=== PATIENT | male | born 1960 | race Caucasian/White ===

== ENCOUNTER 2020-11-18 10:20 | Observation (INO) ==
[2020-11-18] MEDS ORDERED: Albuterol HFA INHALER 8 gm MDI INH ONE (11:03)
[2020-11-18] MEDS ORDERED: methylPREDNISolone 125 mg 2 ML VIAL IV ONE (11:03)
[2020-11-18 11:36] LABS: ABS Basophils 0.1 10^3/ul (0-0.2); ABS Eosinophils 0.1 10^3/ul (0-0.6); ABS Lymphocytes 1.3 10^3/ul (1.0-4.8); ABS Monocytes 0.7 10^3/ul (0-0.8); ABS Neutrophils 9.4 10^3/ul (1.5-7.7); Eosinophil % 0.7 %; Hematocrit 49 % (42-52); Hemoglobin 16.6 g/dL (14.0-18.0); Lymphocyte % 11.5 %; Mean Corpuscular HGB Conc 34 g/dL (31-36); Mean Corpuscular Hemoglobin 33 pg (27-31); Mean Corpuscular Volume 97 fL (80-94); Mean Platelet Volume 8.4 fL (7.4-10.4); Platelet Count 345 10^3/uL (150-450); Red Blood Count 5.11 10^6 /uL (4.18-5.48); Red Cell Distribution Width 13 % (10-15); White Blood Count 11.6 10^3/uL (3.5-10.8)
[2020-11-18 11:56] LABS: Albumin/Globulin Ratio 1.3 (1-3); Calcium 9.2 mg/dL (8.6-10.3); EGFR African American 92.5 (>60); EGFR Non-African American 76.5 (>60); Globulin 3.2 g/dL (2-4); Magnesium 2.1 mg/dL (1.9-2.7); Potassium 4.4 mmol/L (3.5-5.0); Total Bilirubin 0.5 mg/dL (0.2-1.0); Total Protein 7.2 g/dL (6.4-8.9)
[2020-11-18 11:57] LABS: Influenza A Molecular Negative (Negative); Influenza B Molecular Negative (Negative)
[2020-11-18] MEDS ORDERED: Iohexol 350 (CONTRAST) 500 ML MDV IV ONE (12:19)
[2020-11-18 13:35] LABS: Urine Appearance Clear; Urine Bilirubin Negative (Negative); Urine Blood Negative (Negative); Urine Color Yellow; Urine Glucose Negative (Negative); Urine Ketones Trace (Negative); Urine Nitrite Negative (Negative); Urine Protein Negative (Negative); Urine Urobilinogen Negative (Negative)
[2020-11-18 15:49] LABS: C Reactive Protein 21.57 mg/L (<8.01)
[2020-11-19 06:27] LABS: ABS Basophils 0.1 10^3/ul (0-0.2); ABS Lymphocytes 1.5 10^3/ul (1.0-4.8); ABS Monocytes 0.8 10^3/ul (0-0.8); ABS Neutrophils 12.4 10^3/ul (1.5-7.7); Eosinophil % 0.1 %; Hematocrit 44 % (42-52); Hemoglobin 15.1 g/dL (14.0-18.0); Lymphocyte % 10.1 %; Mean Corpuscular HGB Conc 35 g/dL (31-36); Mean Corpuscular Hemoglobin 33 pg (27-31); Mean Corpuscular Volume 95 fL (80-94); Mean Platelet Volume 8.4 fL (7.4-10.4); Platelet Count 350 10^3/uL (150-450); Red Blood Count 4.61 10^6 /uL (4.18-5.48); Red Cell Distribution Width 13 % (10-15); White Blood Count 14.7 10^3/uL (3.5-10.8)
[2020-11-19 06:59] LABS: Albumin 3.8 g/dL (3.2-5.2); Albumin/Globulin Ratio 1.4 (1-3); Calcium 9.2 mg/dL (8.6-10.3); EGFR African American 89.4 (>60); EGFR Non-African American 73.9 (>60); Globulin 2.8 g/dL (2-4); Potassium 4.4 mmol/L (3.5-5.0); Total Bilirubin 0.4 mg/dL (0.2-1.0); Total Protein 6.6 g/dL (6.4-8.9)
[2020-11-19] MEDS: Multivitamins/Minerals TAB PO SCH (10:11)
[2020-11-20 06:25] LABS: ABS Basophils 0.1 10^3/ul (0-0.2); ABS Eosinophils 0.1 10^3/ul (0-0.6); ABS Lymphocytes 2.3 10^3/ul (1.0-4.8); ABS Monocytes 0.8 10^3/ul (0-0.8); ABS Neutrophils 9.9 10^3/ul (1.5-7.7); Eosinophil % 0.9 %; Hematocrit 43 % (42-52); Hemoglobin 14.7 g/dL (14.0-18.0); Lymphocyte % 17.2 %; Mean Corpuscular HGB Conc 34 g/dL (31-36); Mean Corpuscular Hemoglobin 33 pg (27-31); Mean Corpuscular Volume 96 fL (80-94); Mean Platelet Volume 8.7 fL (7.4-10.4); Platelet Count 308 10^3/uL (150-450); Red Blood Count 4.52 10^6 /uL (4.18-5.48); Red Cell Distribution Width 13 % (10-15); White Blood Count 13.1 10^3/uL (3.5-10.8)
[2020-11-20 06:53] LABS: Calcium 8.7 mg/dL (8.6-10.3); EGFR African American 100.6 (>60); EGFR Non-African American 83.2 (>60); HDL Cholesterol 28.2 mg/dL; Phosphorus 3.1 mg/dL (2.5-5.0); Potassium 4.2 mmol/L (3.5-5.0)
[2020-11-20 08:11] LABS: Body Fluid Source Pleural Fluid
[2020-11-20 09:07] LABS: Body Fluid WBC 194 /mcL
[2020-11-20] MEDS: Multivitamins/Minerals TAB PO SCH (09:15)
[2020-11-20 10:09] LABS: Body Fluid Mono 24 %; Body Fluid Total Cells Counted 200
[2020-11-20 10:16] LABS: Body Fluid Appearance Clear; Body Fluid Other Cells 30
[2020-11-20 10:17] LABS: Body Fluid Color Yellow
[2020-11-20 15:10] VITALS: BP 116/50
[2020-11-21 13:08] LABS: Lactate Dehydrogenase, BF 304 U/L
[2020-11-21 16:09] LABS: Fluid Type, Protein, Total PLEURAL; Glucose, BF 96 mg/dL; Total Protein, BF 4.8 g/dL
[2020-11-21 16:10] LABS: Albumin, BF 3.1 g/dL; Fluid Type, Albumin PLEURAL
== END 2020-11-20 16:15 | disposition home or self-care (01) ==
LOC: MED 10:20 → ED 10:20 → SUATTDRO 14:09 → MED 11-19 02:21
PROVIDERS: ADMIT Internal Medicine; ATTEND Internal Medicine

== ENCOUNTER 2020-12-21 18:57 | Inpatient (IN) ==
[2020-12-21] MEDS ORDERED: NS 0.9% 1000 ml BAG 1,000 ML IV ONE (19:21)
[2020-12-21 21:01] LABS: Influenza A Molecular Negative (Negative); Influenza B Molecular Negative (Negative)
[2020-12-21 21:01] LABS: Rapid COVID-19 Molecular Undetected (Undetected)
[2020-12-21 21:42] LABS: ABS Lymphocytes 0.6 10^3/ul (1.0-4.8); ABS Monocytes 0.1 10^3/ul (0-0.8); ABS Neutrophils 11.4 10^3/ul (1.5-7.7); Eosinophil % 0.3 %; Hematocrit 45 % (42-52); Hemoglobin 15.5 g/dL (14.0-18.0); Mean Corpuscular HGB Conc 35 g/dL (31-36); Mean Corpuscular Hemoglobin 31 pg (27-31); Mean Corpuscular Volume 90 fL (80-94); Mean Platelet Volume 7.9 fL (7.4-10.4); Platelet Count 291 10^3/uL (150-450); Red Blood Count 4.96 10^6 /uL (4.18-5.48); Red Cell Distribution Width 13 % (10-15); White Blood Count 12.2 10^3/uL (3.5-10.8)
[2020-12-21 22:02] LABS: ALT 22 U/L (7-52); AST 19 U/L (13-39); Albumin 3.3 g/dL (3.2-5.2); Alkaline Phosphatase 60 U/L (35-149); Anion Gap 8 mmol/L (2-11); Blood Urea Nitrogen 19 mg/dL (6-24); CO2 Carbon Dioxide 26 mmol/L (22-32); Calcium 8.6 mg/dL (8.6-10.3); Chloride 92 mmol/L (101-111); Globulin 3.3 g/dL (2-4); Glucose 137 mg/dL (70-100); Potassium 4.9 mmol/L (3.5-5.0); Sodium 126 mmol/L (135-145); Total Protein 6.6 g/dL (6.4-8.9)
[2020-12-21] MEDS ORDERED: Iohexol 350 (CONTRAST) 500 ML MDV IV ONE (22:05)
[2020-12-21 22:13] LABS: Troponin I 1.28 ng/mL (<0.03)
[2020-12-21] MEDS ORDERED: Ondansetron 4 mg VIAL 2 MG/ML 2 ml VIAL IV PRN (22:53)
[2020-12-21] MEDS ORDERED: NS 0.9% 1000 ml BAG 1,000 ML IV SCH (23:00)
[2020-12-21 23:44] LABS: ABS Lymphocytes 0.7 10^3/ul (1.0-4.8); ABS Monocytes 0.2 10^3/ul (0-0.8); ABS Neutrophils 10.4 10^3/ul (1.5-7.7); Eosinophil % 0.3 %; Hematocrit 44 % (42-52); Hemoglobin 14.9 g/dL (14.0-18.0); Lymphocyte % 5.9 %; Mean Corpuscular HGB Conc 34 g/dL (31-36); Mean Corpuscular Hemoglobin 31 pg (27-31); Mean Corpuscular Volume 90 fL (80-94); Mean Platelet Volume 7.8 fL (7.4-10.4); Platelet Count 276 10^3/uL (150-450); Red Blood Count 4.86 10^6 /uL (4.18-5.48); Red Cell Distribution Width 13 % (10-15); White Blood Count 11.3 10^3/uL (3.5-10.8)
[2020-12-21 23:52] LABS: Blood Urea Nitrogen 19 mg/dL (6-24)
[2020-12-22] MEDS: Heparin DRIP 25,000 UNITS BAG 25,000 UNITS/500 ML BAG IV SCH ×2 (00:50→05:36)
[2020-12-22] MEDS: Heparin 5000 UNITS/ML 1 mL VIAL IV SCH ×2 (00:50→05:37)
[2020-12-22 05:28] LABS: Potassium 3.5 mmol/L (3.5-5.0)
[2020-12-22 05:40] LABS: Troponin I 1.27 ng/mL (<0.03)
[2020-12-22 06:26] LABS: ABS Lymphocytes 0.9 10^3/ul (1.0-4.8); ABS Monocytes 0.1 10^3/ul (0-0.8); ABS Neutrophils 7.5 10^3/ul (1.5-7.7); Eosinophil % 0.5 %; Hematocrit 41 % (42-52); Hemoglobin 14.1 g/dL (14.0-18.0); Lymphocyte % 10.5 %; Mean Corpuscular HGB Conc 34 g/dL (31-36); Mean Corpuscular Hemoglobin 31 pg (27-31); Mean Corpuscular Volume 91 fL (80-94); Mean Platelet Volume 8.3 fL (7.4-10.4); Platelet Count 277 10^3/uL (150-450); Red Blood Count 4.53 10^6 /uL (4.18-5.48); Red Cell Distribution Width 13 % (10-15); White Blood Count 8.6 10^3/uL (3.5-10.8)
[2020-12-22] MEDS: Enoxaparin 100 MG/ML SYR SUBCUT SCH (13:49)
[2020-12-22] MEDS ORDERED: Perflutren Lipid Microsphere 3 ML VIAL ONE (14:06)
[2020-12-22] MEDS: Calcium Carb (TUMS) 500 mg CHEW TAB PO PRN ×2 (16:20→19:50)
[2020-12-22] MEDS: Senna TAB 8.6 mg TAB PO PRN (19:50)
[2020-12-23] MEDS: Enoxaparin 100 MG/ML SYR SUBCUT SCH ×2 (00:24→11:13)
[2020-12-23 05:41] LABS: ABS Lymphocytes 1.1 10^3/ul (1.0-4.8); ABS Monocytes 0.2 10^3/ul (0-0.8); ABS Neutrophils 6.6 10^3/ul (1.5-7.7); Eosinophil % 0.6 %; Hematocrit 39 % (42-52); Hemoglobin 13.4 g/dL (14.0-18.0); Lymphocyte % 13.4 %; Mean Corpuscular HGB Conc 34 g/dL (31-36); Mean Corpuscular Hemoglobin 31 pg (27-31); Mean Corpuscular Volume 90 fL (80-94); Mean Platelet Volume 7.8 fL (7.4-10.4); Platelet Count 234 10^3/uL (150-450); Red Blood Count 4.33 10^6 /uL (4.18-5.48); Red Cell Distribution Width 12 % (10-15)
[2020-12-23 06:03] LABS: Calcium 7.9 mg/dL (8.6-10.3); Potassium 4.2 mmol/L (3.5-5.0)
[2020-12-23] MEDS: Calcium Carb (TUMS) 500 mg CHEW TAB PO PRN ×2 (08:49→15:10)
[2020-12-23] MEDS: Senna TAB 8.6 mg TAB PO PRN ×2 (11:22→20:06)
[2020-12-23] MEDS: Warfarin DAILY REMINDER **NOTE FOLLOW UP SCH (16:44)
[2020-12-23] MEDS ORDERED: Calcium Carb (TUMS) 500 mg CHEW TAB PO SCH (18:00)
[2020-12-24] MEDS: Enoxaparin 100 MG/ML SYR SUBCUT SCH ×2 (00:39→12:06)
[2020-12-24 05:05] LABS: ABS Lymphocytes 1.2 10^3/ul (1.0-4.8); ABS Monocytes 0.2 10^3/ul (0-0.8); ABS Neutrophils 2.6 10^3/ul (1.5-7.7); Hematocrit 39 % (42-52); Hemoglobin 13.3 g/dL (14.0-18.0); Lymphocyte % 28.7 %; Mean Corpuscular HGB Conc 34 g/dL (31-36); Mean Corpuscular Hemoglobin 31 pg (27-31); Mean Corpuscular Volume 90 fL (80-94); Mean Platelet Volume 7.4 fL (7.4-10.4); Nucleated Red Blood Cells % 0.1; Platelet Count 223 10^3/uL (150-450); Red Blood Count 4.31 10^6 /uL (4.18-5.48); Red Cell Distribution Width 13 % (10-15)
[2020-12-24 05:28] LABS: Potassium 3.9 mmol/L (3.5-5.0)
[2020-12-24 08:15] LABS: INR 1.25 (0.86-1.15)
[2020-12-24] MEDS: Calcium Carb (TUMS) 500 mg CHEW TAB PO SCH ×3 (08:58→20:55)
[2020-12-24] MEDS: Senna TAB 8.6 mg TAB PO PRN (08:59)
[2020-12-24] MEDS: Warfarin DAILY REMINDER **NOTE FOLLOW UP SCH (16:31)
[2020-12-25] MEDS: Enoxaparin 100 MG/ML SYR SUBCUT SCH ×2 (01:06→12:53)
[2020-12-25 05:49] LABS: ABS Eosinophils 0.1 10^3/ul (0-0.6); ABS Lymphocytes 1.1 10^3/ul (1.0-4.8); ABS Monocytes 0.3 10^3/ul (0-0.8); ABS Neutrophils 1.9 10^3/ul (1.5-7.7); Eosinophil % 1.6 %; Hematocrit 36 % (42-52); Hemoglobin 12.5 g/dL (14.0-18.0); Lymphocyte % 32.5 %; Mean Corpuscular HGB Conc 35 g/dL (31-36); Mean Corpuscular Hemoglobin 31 pg (27-31); Mean Corpuscular Volume 90 fL (80-94); Mean Platelet Volume 7.8 fL (7.4-10.4); Platelet Count 186 10^3/uL (150-450); Red Blood Count 4.04 10^6 /uL (4.18-5.48); Red Cell Distribution Width 13 % (10-15); White Blood Count 3.3 10^3/uL (3.5-10.8)
[2020-12-25 05:53] LABS: INR 1.52 (0.86-1.15)
[2020-12-25 06:07] LABS: Calcium 7.9 mg/dL (8.6-10.3)
[2020-12-25] MEDS: Calcium Carb (TUMS) 500 mg CHEW TAB PO SCH ×3 (09:11→21:51)
[2020-12-25] MEDS ORDERED: Heparin 2 UNITS/ML 1000 mls 1,000 ML IV ONE (11:52)
[2020-12-25] MEDS ORDERED: fentaNYL 100 mcg/2 ml 50 MCG/ML VIAL ONE (13:33)
[2020-12-25] MEDS: Warfarin DAILY REMINDER **NOTE FOLLOW UP SCH (17:24)
[2020-12-26] MEDS: Enoxaparin 100 MG/ML SYR SUBCUT SCH ×3 (02:30→23:47)
[2020-12-26 05:53] LABS: ABS Lymphocytes 0.9 10^3/ul (1.0-4.8); ABS Monocytes 0.3 10^3/ul (0-0.8); ABS Neutrophils 2.4 10^3/ul (1.5-7.7); Eosinophil % 1.4 %; Hematocrit 35 % (42-52); Lymphocyte % 23.7 %; Mean Corpuscular HGB Conc 34 g/dL (31-36); Mean Corpuscular Hemoglobin 31 pg (27-31); Mean Corpuscular Volume 89 fL (80-94); Mean Platelet Volume 7.7 fL (7.4-10.4); Platelet Count 183 10^3/uL (150-450); Red Blood Count 3.93 10^6 /uL (4.18-5.48); Red Cell Distribution Width 13 % (10-15); White Blood Count 3.6 10^3/uL (3.5-10.8)
[2020-12-26 06:18] LABS: Potassium 4.1 mmol/L (3.5-5.0)
[2020-12-26 07:24] LABS: INR 1.96 (0.86-1.15)
[2020-12-26] MEDS: Calcium Carb (TUMS) 500 mg CHEW TAB PO SCH ×3 (08:23→20:44)
[2020-12-26] MEDS: Warfarin DAILY REMINDER **NOTE FOLLOW UP SCH (19:02)
[2020-12-27] MEDS: Calcium Carb (TUMS) 500 mg CHEW TAB PO SCH ×3 (07:44→20:58)
[2020-12-27 11:06] LABS: ABS Lymphocytes 0.9 10^3/ul (1.0-4.8); ABS Monocytes 0.5 10^3/ul (0-0.8); ABS Neutrophils 2.5 10^3/ul (1.5-7.7); Eosinophil % 0.8 %; Hematocrit 38 % (42-52); Hemoglobin 13.2 g/dL (14.0-18.0); Lymphocyte % 23.8 %; Mean Corpuscular HGB Conc 35 g/dL (31-36); Mean Corpuscular Hemoglobin 31 pg (27-31); Mean Corpuscular Volume 90 fL (80-94); Nucleated Red Blood Cells % 0.1; Platelet Count 233 10^3/uL (150-450); Red Blood Count 4.27 10^6 /uL (4.18-5.48); Red Cell Distribution Width 13 % (10-15); White Blood Count 3.9 10^3/uL (3.5-10.8)
[2020-12-27 11:23] LABS: Calcium 8.5 mg/dL (8.6-10.3); Potassium 4.3 mmol/L (3.5-5.0)
[2020-12-27 11:40] LABS: INR 1.82 (0.86-1.15)
[2020-12-27] MEDS: Enoxaparin 100 MG/ML SYR SUBCUT SCH ×2 (13:03→22:51)
[2020-12-27] MEDS: Warfarin DAILY REMINDER **NOTE FOLLOW UP SCH (17:14)
[2020-12-27] MEDS ORDERED: Pantoprazole VIAL 40 MG VIAL IV ONE (22:29)
[2020-12-28 06:08] LABS: ABS Lymphocytes 0.9 10^3/ul (1.0-4.8); ABS Monocytes 0.4 10^3/ul (0-0.8); ABS Neutrophils 1.4 10^3/ul (1.5-7.7); Eosinophil % 0.5 %; Hematocrit 34 % (42-52); Hemoglobin 12.1 g/dL (14.0-18.0); Lymphocyte % 32.4 %; Mean Corpuscular HGB Conc 35 g/dL (31-36); Mean Corpuscular Hemoglobin 31 pg (27-31); Mean Corpuscular Volume 89 fL (80-94); Mean Platelet Volume 7.7 fL (7.4-10.4); Nucleated Red Blood Cells % 0.1; Platelet Count 227 10^3/uL (150-450); Red Blood Count 3.88 10^6 /uL (4.18-5.48); Red Cell Distribution Width 13 % (10-15); White Blood Count 2.8 10^3/uL (3.5-10.8)
[2020-12-28 06:12] LABS: INR 1.88 (0.86-1.15)
[2020-12-28 06:31] LABS: Albumin 2.8 g/dL (3.2-5.2); Albumin/Globulin Ratio 0.9 (1-3); Calcium 8.3 mg/dL (8.6-10.3); Globulin 3.1 g/dL (2-4); Magnesium 1.6 mg/dL (1.9-2.7); Potassium 4.3 mmol/L (3.5-5.0); Total Bilirubin 0.3 mg/dL (0.2-1.0); Total Protein 5.9 g/dL (6.4-8.9)
[2020-12-28] MEDS: Polyethylene Glycol 3350 17 GM PACKET PO SCH ×2 (08:19→22:36)
[2020-12-28] MEDS: Calcium Carb (TUMS) 500 mg CHEW TAB PO SCH ×3 (08:20→22:33)
[2020-12-28] MEDS: Enoxaparin 100 MG/ML SYR SUBCUT SCH ×2 (13:21→22:37)
[2020-12-28] MEDS: Warfarin DAILY REMINDER **NOTE FOLLOW UP SCH (17:03)
[2020-12-29] MEDS: Senna TAB 8.6 mg TAB PO PRN ×2 (04:42→20:59)
[2020-12-29 06:08] LABS: ABS Lymphocytes 0.8 10^3/ul (1.0-4.8); ABS Monocytes 0.5 10^3/ul (0-0.8); ABS Neutrophils 1.8 10^3/ul (1.5-7.7); Eosinophil % 0.3 %; Hematocrit 37 % (42-52); Hemoglobin 12.8 g/dL (14.0-18.0); Lymphocyte % 26.1 %; Mean Corpuscular HGB Conc 34 g/dL (31-36); Mean Corpuscular Hemoglobin 31 pg (27-31); Mean Corpuscular Volume 89 fL (80-94); Mean Platelet Volume 7.9 fL (7.4-10.4); Nucleated Red Blood Cells % 0.1; Platelet Count 241 10^3/uL (150-450); Red Blood Count 4.18 10^6 /uL (4.18-5.48); Red Cell Distribution Width 13 % (10-15); White Blood Count 3.1 10^3/uL (3.5-10.8)
[2020-12-29 06:13] LABS: INR 2.07 (0.86-1.15)
[2020-12-29 06:26] LABS: Blood Urea Nitrogen 10 mg/dL (6-24); CO2 Carbon Dioxide 21 mmol/L (22-32); Calcium 8.1 mg/dL (8.6-10.3); Chloride 97 mmol/L (101-111); Glucose 107 mg/dL (70-100); Sodium 126 mmol/L (135-145)
[2020-12-29 06:38] LABS: Anion Gap 8 mmol/L (2-11)
[2020-12-29] MEDS: Polyethylene Glycol 3350 17 GM PACKET PO SCH ×2 (09:18→20:57)
[2020-12-29] MEDS: Calcium Carb (TUMS) 500 mg CHEW TAB PO SCH ×3 (09:20→20:57)
[2020-12-29 11:09] LABS: Magnesium 1.7 mg/dL (1.9-2.7)
[2020-12-29] MEDS: Enoxaparin 100 MG/ML SYR SUBCUT SCH (13:57)
[2020-12-29] MEDS: Warfarin DAILY REMINDER **NOTE FOLLOW UP SCH (17:00)
[2020-12-30] MEDS: Enoxaparin 100 MG/ML SYR SUBCUT SCH ×3 (00:30→11:20)
[2020-12-30 07:02] LABS: Hematocrit 35 % (42-52); Hemoglobin 12.2 g/dL (14.0-18.0); Mean Corpuscular HGB Conc 35 g/dL (31-36); Mean Corpuscular Hemoglobin 31 pg (27-31); Mean Corpuscular Volume 89 fL (80-94); Mean Platelet Volume 7.9 fL (7.4-10.4); Platelet Count 257 10^3/uL (150-450); Red Blood Count 3.95 10^6 /uL (4.18-5.48); Red Cell Distribution Width 13 % (10-15); White Blood Count 2.8 10^3/uL (3.5-10.8)
[2020-12-30 07:06] LABS: INR 2.38 (0.86-1.15)
[2020-12-30 07:18] LABS: Calcium 8.1 mg/dL (8.6-10.3); Potassium 4.3 mmol/L (3.5-5.0)
[2020-12-30 08:14] LABS: Magnesium 1.9 mg/dL (1.9-2.7)
[2020-12-30] MEDS: Polyethylene Glycol 3350 17 GM PACKET PO SCH ×2 (11:13→11:21)
[2020-12-30] MEDS: Calcium Carb (TUMS) 500 mg CHEW TAB PO SCH (11:14)
[2020-12-30 13:25] VITALS: BP 106/64
== END 2020-12-30 12:13 | disposition home or self-care (01) | DRG 134 ==
LOC: ED 18:57 → EDHOLD 18:57 → SUATTDRO 22:48 → MEDTELE 12-22 12:54 → SUATTDRO 12-22 16:00
PROVIDERS: ADMIT Internal Medicine; ATTEND Student in an Organized Health Care Education/Training Program

== ENCOUNTER 2022-07-09 11:09 | Inpatient (IN) ==
[2022-07-09] MEDS ORDERED: Senna TAB 8.6 mg TAB PO PRN (11:47)
[2022-07-09] MEDS ORDERED: Polyethylene Glycol 3350 17 GM PACKET PO PRN (11:47)
[2022-07-09] MEDS ORDERED: Morphine 2 MG/ML SYRINGE IV PRN (11:58)
[2022-07-09] MEDS ORDERED: Enoxaparin 60 MG/0.6 ML SYR SUBCUT SCH (12:00)
[2022-07-09] MEDS ORDERED: Morphine 2 MG/ML SYRINGE ONE ×2 (12:07→15:13)
[2022-07-09 13:05] LABS: Hematocrit 39.6 % (38-53); Hemoglobin 13.4 g/dL (13.2-16.3); Mean Corpuscular Hgb Conc 33.9 g/dL (31-36); Mean Corpuscular Volume 91.4 fL (80-97); Mean Platelet Volume 7.8 fL (7.5-11.2); Platelet Count 305 10^3/uL (150-450); Red Blood Count 4.33 10^6/uL (4.06-5.63); Red Cell Distribution Width 15.9 % (12-17); White Blood Count 17.6 10^3/uL (3.6-10.2)
[2022-07-09 13:15] LABS: Activated Partial Thrombo Time 41.6 seconds (26.0-38.0)
[2022-07-09 13:18] LABS: Albumin 3.4 g/dL (3.2-5.2); Calcium 10.2 mg/dL (8.6-10.3); Magnesium 1.8 mg/dL (1.9-2.7); Potassium 4.8 mmol/L (3.5-5.0); Total Bilirubin 1.5 mg/dL (0.2-1.0)
[2022-07-09] MEDS ORDERED: Ondansetron ODT 4 mg TAB 4 MG TAB PO PRN (13:18)
[2022-07-09 13:19] LABS: INR 5.21 (0.88-1.18)
[2022-07-09 13:24] LABS: Creatinine, Serum 1.07 mg/dL (0.67-1.17); Globulin 3.3 g/dL (2-4); Total Protein 6.7 g/dL (6.4-8.9)
[2022-07-09 13:51] LABS: RBC Morphology Normal (Normal)
[2022-07-09 13:52] LABS: ABS Lymphocytes 0.2 10^3/uL (1.0-4.8); ABS Monocytes 0.8 10^3/uL (0.0-1.1); ABS Neutrophils 16.6 10^3/uL (1.5-7.6); ABS Nucleated RBC 0.02 10^3/ul; Eosinophil % 0.1 %; Lymphocyte % 1.2 %; Nucleated Red Blood Cells % 0.1 /100 WBC (0.0-0.4)
[2022-07-09] MEDS: HYDROmorphone 1 MG/1 ML SYRINGE IV SLOW PU PRN (17:31)
[2022-07-09] MEDS: HYDROcodone/ACETAMIN 5/325 mg TAB PO PRN ×2 (17:31→22:43)
[2022-07-09] MEDS: Ondansetron 4 mg VIAL 2 MG/ML 2 ml VIAL IV PRN (17:31)
[2022-07-09] MEDS ORDERED: cefTRIAXone 1 gm/50 mL D5W 1 GM/50 ML BAG IV SCH (19:30)
[2022-07-09] MEDS ORDERED: D5W IV SCH (20:00)
[2022-07-09] MEDS ORDERED: LEVOTHYROXINE IV SCH (20:00)
[2022-07-09] MEDS ORDERED: Iohexol 350 (CONTRAST) 500 ML MDV IV ONE (21:06)
[2022-07-09] MEDS ORDERED: Prothrombin Complex Conc. DOSE = Units Factor IX (nine) IV SLOW PU ONE (23:36)
[2022-07-09] MEDS ORDERED: Phytonadione IV (Adult) 5 MG in NS 0.9% 50 ML 50 ML IV ONE (23:39)
[2022-07-09] MEDS ORDERED: Piperacillin/Tazobac ADVAN 3.375 GM in NS 0.9% 100 ml BAG 100 ML IV ONE (23:44)
[2022-07-09] MEDS ORDERED: Zosyn per Pharmacy NOTE FOLLOW UP SCH (23:45)
[2022-07-10] MEDS ORDERED: Rocuronium 50 mg VIAL 10 mg/ml 5 ml VIAL (50 mg) ONE ×2 (01:11→03:04)
[2022-07-10] MEDS ORDERED: fentaNYL 100 mcg/2 ml 50 MCG/ML VIAL ONE ×2 (01:11→02:42)
[2022-07-10] MEDS ORDERED: Midazolam 2 mg/2 ml VIAL 1 mg/ml 2 ml VIAL (2 mg) ONE (01:11)
[2022-07-10] MEDS: HYDROmorphone 1 MG/1 ML SYRINGE IV SLOW PU PRN (01:18)
[2022-07-10] MEDS ORDERED: Succinylcholine 200 mg VIAL 20 mg/ml 10 ml VIAL (200 mg) ONE (03:07)
[2022-07-10] MEDS ORDERED: Phenylephrine 40 mcg/mL 10mL (400mcg) SYRINGE ONE (03:07)
[2022-07-10] MEDS ORDERED: Dexamethasone IV 4 MG/ML VIAL 1 ml VIAL ONE (03:07)
[2022-07-10] MEDS ORDERED: Ondansetron 4 mg VIAL 2 MG/ML 2 ml VIAL ONE (03:07)
[2022-07-10] MEDS ORDERED: Propofol 10 MG/ML 20 ML BTL ONE (03:07)
[2022-07-10] MEDS ORDERED: Lidocaine 2% PF 5 ML VIAL ONE (03:07)
[2022-07-10] MEDS ORDERED: Acetaminophen IV 1 GM/100ML 1,000 MG/100 ML BAG IV ONE (03:08)
[2022-07-10] MEDS ORDERED: HYDROmorphone 0.5 MG/0.5 ML SYRINGE ONE ×4 (03:11→06:07)
[2022-07-10] MEDS ORDERED: Naloxone 0.4 mg VIAL 0.4 mg/ml 1 ml VIAL IV PRN (03:42)
[2022-07-10] MEDS ORDERED: HYDROmorphone 1 MG/1 ML SYRINGE IV PRN (03:42)
[2022-07-10] MEDS ORDERED: Sugammadex 500 MG/5 ML 5 ml VIAL IV PUSH ONE (05:54)
[2022-07-10] MEDS ORDERED: Naloxone 0.4 mg VIAL 0.4 mg/ml 1 ml VIAL IV PUSH PRN (06:41)
[2022-07-10 07:56] LABS: INR 1.24 (0.88-1.18)
[2022-07-10 08:08] LABS: Hematocrit 37.5 % (38-53); Hemoglobin 12.5 g/dL (13.2-16.3); Mean Corpuscular Hgb Conc 33.3 g/dL (31-36); Mean Corpuscular Volume 92.9 fL (80-97); Mean Platelet Volume 7.9 fL (7.5-11.2); Platelet Count 256 10^3/uL (150-450); Red Blood Count 4.04 10^6/uL (4.06-5.63); Red Cell Distribution Width 15.8 % (12-17); White Blood Count 8.7 10^3/uL (3.6-10.2)
[2022-07-10] MEDS: ZOSYN 3.375 GM Q8H per EXTENDED INFUSION IV SCH ×2 (08:19→17:53)
[2022-07-10 08:33] LABS: RBC Morphology Normal (Normal)
[2022-07-10 08:35] LABS: ABS Basophils 0.1 10^3/uL (0.0-0.1); ABS Lymphocytes 0.2 10^3/uL (1.0-4.8); ABS Monocytes 0.2 10^3/uL (0.0-1.1); ABS Neutrophils 8.2 10^3/uL (1.5-7.6); ABS Nucleated RBC 0.01 10^3/ul; Eosinophil % 0.3 %; Lymphocyte % 2.7 %; Nucleated Red Blood Cells % 0.1 /100 WBC (0.0-0.4)
[2022-07-10 08:38] LABS: Albumin 1.9 g/dL (3.2-5.2); Albumin/Globulin Ratio 1.2 (1-3); Calcium 7.2 mg/dL (8.6-10.3); Creatinine, Serum 0.64 mg/dL (0.67-1.17); Globulin 1.6 g/dL (2-4); Potassium 3.9 mmol/L (3.5-5.0); Total Bilirubin 2.6 mg/dL (0.2-1.0); Total Protein 3.5 g/dL (6.4-8.9); eGFR CKD-EPI 107.7 (>60)
[2022-07-10] MEDS ORDERED: Metoprolol Tartrate 5 mg VIAL 5 ml VIAL (1 mg/ml) ONE (08:48)
[2022-07-10] MEDS ORDERED: Simvastatin 10 mg TAB (NF) PO SCH (09:00)
[2022-07-10] MEDS: HYDROmorphone PCA 20 MG/20 ML PCA.SYRING PCA SCH (10:15)
[2022-07-10] MEDS: Levothyroxine 100 MCG/5 ML VIAL IV SCH (10:53)
[2022-07-10] MEDS: Metoprolol Tartrate 5 mg VIAL 5 ml VIAL (1 mg/ml) IV SCH ×3 (10:54→21:47)
[2022-07-10] MEDS ORDERED: METHYLPREDNISOLONE SOD IV ONE (11:39)
[2022-07-10] MEDS ORDERED: NS 0.9% IV ONE (11:39)
[2022-07-10] MEDS: NS 0.9% 1000 ml BAG 1,000 ML IV SCH (23:05)
[2022-07-11] MEDS: ZOSYN 3.375 GM Q8H per EXTENDED INFUSION IV SCH ×3 (00:14→15:59)
[2022-07-11] MEDS: Metoprolol Tartrate 5 mg VIAL 5 ml VIAL (1 mg/ml) IV SCH ×4 (02:40→21:37)
[2022-07-11 05:54] LABS: Hemoglobin 10.8 g/dL (13.2-16.3); Mean Corpuscular Hemoglobin 30.7 pg (27-33); Mean Corpuscular Hgb Conc 33.7 g/dL (31-36); Mean Corpuscular Volume 90.9 fL (80-97); Mean Platelet Volume 8.2 fL (7.5-11.2); Platelet Count 181 10^3/uL (150-450); Red Blood Count 3.51 10^6/uL (4.06-5.63); Red Cell Distribution Width 15.5 % (12-17)
[2022-07-11] MEDS: Levothyroxine 100 MCG/5 ML VIAL IV SCH (06:02)
[2022-07-11 06:13] LABS: Albumin 1.9 g/dL (3.2-5.2); Albumin/Globulin Ratio 1.1 (1-3); Calcium 7.5 mg/dL (8.6-10.3); Creatinine, Serum 0.62 mg/dL (0.67-1.17); Globulin 1.8 g/dL (2-4); Magnesium 1.8 mg/dL (1.9-2.7); Phosphorus 2.9 mg/dL (2.5-5.0); Potassium 3.1 mmol/L (3.5-5.0); Total Bilirubin 1.6 mg/dL (0.2-1.0); Total Protein 3.7 g/dL (6.4-8.9); eGFR CKD-EPI 108.7 (>60)
[2022-07-11 06:20] LABS: RBC Morphology Normal (Normal)
[2022-07-11 06:22] LABS: ABS Lymphocytes 0.3 10^3/uL (1.0-4.8); ABS Monocytes 0.4 10^3/uL (0.0-1.1); ABS Neutrophils 15.3 10^3/uL (1.5-7.6); ABS Nucleated RBC 0.07 10^3/ul; Eosinophil % 0.1 %; Lymphocyte % 1.9 %; Nucleated Red Blood Cells % 0.4 /100 WBC (0.0-0.4)
[2022-07-11] MEDS ORDERED: KCL 20 MEQ/100 ML IVPREMIX 20 MEQ/100 ML BAG IV ONE (07:11)
[2022-07-11] MEDS ORDERED: Magnesium Sulfate IV 1GM/100ML 1 GM/100 ML BAG IV ONE (07:11)
[2022-07-11] MEDS: NS 0.9% 1000 ml BAG 1,000 ML IV SCH (08:45)
[2022-07-11] MEDS: Heparin 5000 UNITS/ML 1 mL VIAL SUBCUT SCH ×2 (14:43→21:36)
[2022-07-11] MEDS ORDERED: TPN 24 HR with Dextrose 50% Water 500 ML, Amino Acid Infusion 10% 850 ML, Sterile Water... CENT\\PICC SCH (17:00)
[2022-07-11] MEDS: PPN (PERIPHERAL) 24 HR with D10W 1000 ml BAG 1,000 ML, Amino Acid Infusion 10% 850 ML, ... IV SCH (17:23)
[2022-07-12] MEDS: ZOSYN 3.375 GM Q8H per EXTENDED INFUSION IV SCH ×4 (00:14→23:58)
[2022-07-12] MEDS: Metoprolol Tartrate 5 mg VIAL 5 ml VIAL (1 mg/ml) IV SCH ×4 (03:25→21:55)
[2022-07-12] MEDS: Heparin 5000 UNITS/ML 1 mL VIAL SUBCUT SCH ×3 (05:46→21:52)
[2022-07-12] MEDS: Levothyroxine 100 MCG/5 ML VIAL IV SCH (05:46)
[2022-07-12 06:11] LABS: Hematocrit 30.8 % (38-53); Hemoglobin 10.4 g/dL (13.2-16.3); Mean Corpuscular Hemoglobin 30.9 pg (27-33); Mean Corpuscular Hgb Conc 33.7 g/dL (31-36); Mean Corpuscular Volume 91.5 fL (80-97); Mean Platelet Volume 8.4 fL (7.5-11.2); Platelet Count 143 10^3/uL (150-450); Red Blood Count 3.36 10^6/uL (4.06-5.63); Red Cell Distribution Width 16.1 % (12-17); White Blood Count 25.5 10^3/uL (3.6-10.2)
[2022-07-12 06:30] LABS: RBC Morphology Normal (Normal); Toxic Granulation 1+
[2022-07-12 06:31] LABS: ABS Basophils 0.1 10^3/uL (0.0-0.1); ABS Lymphocytes 0.5 10^3/uL (1.0-4.8); ABS Monocytes 0.3 10^3/uL (0.0-1.1); ABS Neutrophils 24.7 10^3/uL (1.5-7.6); ABS Nucleated RBC 0.18 10^3/ul; Eosinophil % 0.1 %; Lymphocyte % 1.8 %; Nucleated Red Blood Cells % 0.7 /100 WBC (0.0-0.4)
[2022-07-12 06:34] LABS: ALT 13 U/L (7-52); AST 19 U/L (13-39); Albumin 1.9 g/dL (3.2-5.2); Alkaline Phosphatase 85 U/L (35-149); Anion Gap 6 mmol/L (2-16); Blood Urea Nitrogen 21 mg/dL (6-24); CO2 Carbon Dioxide 30 mmol/L (22-32); Calcium 7.6 mg/dL (8.6-10.3); Chloride 104 mmol/L (101-111); Cholesterol 119 mg/dL; Creatinine, Serum 0.65 mg/dL (0.67-1.17); Glucose 131 mg/dL (70-100); Magnesium 1.9 mg/dL (1.9-2.7); Phosphorus 1.8 mg/dL (2.5-5.0); Potassium 3.4 mmol/L (3.5-5.0); Prealbumin < 3 mg/dL (18-38); Sodium 140 mmol/L (135-145); Total Protein 3.9 g/dL (6.4-8.9); Triglycerides 445 mg/dL; eGFR CKD-EPI 107.2 (>60)
[2022-07-12] MEDS ORDERED: Potassium Phosphate IV 10 MMOL in NS 0.9% 250 ml 250 ML IVPB ONE (09:45)
[2022-07-12] MEDS ORDERED: methylPREDNISolone SOD SUCC 40 mg/ml 1 ml VIAL IV SCH ×2 (10:00→10:45)
[2022-07-12 12:53] LABS: C Reactive Protein 222.53 mg/L (<8.01)
[2022-07-12] MEDS: PPN (PERIPHERAL) 24 HR with D10W 1000 ml BAG 1,000 ML, Amino Acid Infusion 10% 850 ML, ... IV SCH (17:07)
[2022-07-13] MEDS: Metoprolol Tartrate 5 mg VIAL 5 ml VIAL (1 mg/ml) IV SCH ×4 (02:47→21:59)
[2022-07-13] MEDS: HYDROmorphone PCA 20 MG/20 ML PCA.SYRING PCA SCH (02:52)
[2022-07-13] MEDS: Heparin 5000 UNITS/ML 1 mL VIAL SUBCUT SCH ×3 (05:21→22:02)
[2022-07-13] MEDS: Levothyroxine 100 MCG/5 ML VIAL IV SCH (05:21)
[2022-07-13 05:56] LABS: Albumin 2.1 g/dL (3.2-5.2); Albumin/Globulin Ratio 1.1 (1-3); C Reactive Protein 127.96 mg/L (<8.01); Calcium 7.8 mg/dL (8.6-10.3); Creatinine, Serum 0.54 mg/dL (0.67-1.17); Phosphorus 3.3 mg/dL (2.5-5.0); Potassium 3.5 mmol/L (3.5-5.0); Total Bilirubin 0.5 mg/dL (0.2-1.0); Total Protein 4.1 g/dL (6.4-8.9); eGFR CKD-EPI 113.4 (>60)
[2022-07-13] MEDS: ZOSYN 3.375 GM Q8H per EXTENDED INFUSION IV SCH ×2 (07:47→16:17)
[2022-07-13] MEDS: methylPREDNISolone SOD SUCC 40 mg/ml 1 ml VIAL IV SCH (10:22)
[2022-07-13] MEDS: Acetaminophen IV 1 GM/100ML 1,000 MG/100 ML BAG IV SCH ×2 (12:34→18:17)
[2022-07-13 14:42] LABS: ALT 11 U/L (7-52); Albumin/Globulin Ratio 1.1 (1-3); Alkaline Phosphatase 67 U/L (35-149); Blood Urea Nitrogen 21 mg/dL (6-24); CO2 Carbon Dioxide 30 mmol/L (22-32); Calcium 7.9 mg/dL (8.6-10.3); Chloride 100 mmol/L (101-111); Cholesterol 142 mg/dL; Creatinine, Serum 0.49 mg/dL (0.67-1.17); Globulin 1.9 g/dL (2-4); Glucose 307 mg/dL (70-100); Prealbumin 6 mg/dL (18-38); Sodium 135 mmol/L (135-145); Total Protein 3.9 g/dL (6.4-8.9); Triglycerides 976 mg/dL; eGFR CKD-EPI 116.8 (>60)
[2022-07-13 14:44] LABS: Anion Gap 5 mmol/L (2-16)
[2022-07-13] MEDS: TPN 24 HR with Dextrose 50% Water 500 ML, Amino Acid Infusion 10% 850 ML, Sterile Water... CENT\\PICC SCH (17:34)
[2022-07-14] MEDS: ZOSYN 3.375 GM Q8H per EXTENDED INFUSION IV SCH ×3 (01:07→18:31)
[2022-07-14] MEDS: Acetaminophen IV 1 GM/100ML 1,000 MG/100 ML BAG IV SCH ×4 (01:07→18:32)
[2022-07-14] MEDS: Metoprolol Tartrate 5 mg VIAL 5 ml VIAL (1 mg/ml) IV SCH ×4 (02:56→19:05)
[2022-07-14 05:26] LABS: Hematocrit 32.8 % (38-53); Hemoglobin 11.1 g/dL (13.2-16.3); Mean Corpuscular Hemoglobin 32.7 pg (27-33); Mean Corpuscular Hgb Conc 33.8 g/dL (31-36); Mean Corpuscular Volume 96.7 fL (80-97); Mean Platelet Volume 9.6 fL (7.5-11.2); Platelet Count 137 10^3/uL (150-450); Red Blood Count 3.39 10^6/uL (4.06-5.63); Red Cell Distribution Width 16.9 % (12-17); White Blood Count 19.5 10^3/uL (3.6-10.2)
[2022-07-14 05:50] LABS: ABS Lymphocytes 0.5 10^3/uL (1.0-4.8); ABS Monocytes 0.1 10^3/uL (0.0-1.1); ABS Neutrophils 18.8 10^3/uL (1.5-7.6); ABS Nucleated RBC 0.34 10^3/ul; Eosinophil % 0.1 %; Lymphocyte % 2.6 %; Nucleated Red Blood Cells % 1.8 /100 WBC (0.0-0.4)
[2022-07-14 05:52] LABS: ALT 12 U/L (7-52); Albumin 1.9 g/dL (3.2-5.2); Alkaline Phosphatase 69 U/L (35-149); Blood Urea Nitrogen 22 mg/dL (6-24); CO2 Carbon Dioxide 28 mmol/L (22-32); Calcium 8.2 mg/dL (8.6-10.3); Chloride 100 mmol/L (101-111); Cholesterol 116 mg/dL; Creatinine, Serum 0.62 mg/dL (0.67-1.17); Globulin 1.9 g/dL (2-4); Prealbumin 7 mg/dL (18-38); Sodium 131 mmol/L (135-145); Total Protein 3.8 g/dL (6.4-8.9); Triglycerides 832 mg/dL; eGFR CKD-EPI 108.7 (>60)
[2022-07-14] MEDS: Heparin 5000 UNITS/ML 1 mL VIAL SUBCUT SCH (06:07)
[2022-07-14] MEDS: Levothyroxine 100 MCG/5 ML VIAL IV SCH (06:11)
[2022-07-14 06:17] LABS: Anion Gap 3 mmol/L (2-16)
[2022-07-14 07:24] LABS: ALT 14 U/L (7-52); Alkaline Phosphatase 79 U/L (35-149); Blood Urea Nitrogen 23 mg/dL (6-24); CO2 Carbon Dioxide 32 mmol/L (22-32); Calcium 7.5 mg/dL (8.6-10.3); Chloride 104 mmol/L (101-111); Cholesterol 122 mg/dL; Creatinine, Serum 0.62 mg/dL (0.67-1.17); Glucose 162 mg/dL (70-100); Sodium 143 mmol/L (135-145); Triglycerides 416 mg/dL; eGFR CKD-EPI 108.7 (>60)
[2022-07-14 07:32] LABS: Anion Gap 7 mmol/L (2-16)
[2022-07-14 07:38] LABS: Potassium, Whole Blood 3.6 mmol/L (3.4-4.5)
[2022-07-14] MEDS: methylPREDNISolone SOD SUCC 40 mg/ml 1 ml VIAL IV SCH (11:19)
[2022-07-14] MEDS ORDERED: fentaNYL 100 mcg/2 ml 50 MCG/ML VIAL IV PRN (12:03)
[2022-07-14] MEDS ORDERED: HYDROmorphone 1 MG/1 ML SYRINGE IV PRN (12:03)
[2022-07-14] MEDS ORDERED: Propofol 10 MG/ML 20 ML BTL ONE (12:41)
[2022-07-14] MEDS ORDERED: Ondansetron 4 mg VIAL 2 MG/ML 2 ml VIAL ONE ×2 (12:41→17:23)
[2022-07-14] MEDS ORDERED: Metoclopramide 5 MG/ML VIAL (10 mg) ONE (12:41)
[2022-07-14] MEDS ORDERED: Rocuronium 50 mg VIAL 10 mg/ml 5 ml VIAL (50 mg) ONE ×2 (12:41→15:06)
[2022-07-14] MEDS ORDERED: fentaNYL 250 mcg/5 ml 50 MCG/ML 5 ml VIAL (250 MCG) ONE (12:41)
[2022-07-14] MEDS ORDERED: Succinylcholine 200 mg VIAL 20 mg/ml 10 ml VIAL (200 mg) ONE (12:41)
[2022-07-14] MEDS ORDERED: fentaNYL 100 mcg/2 ml 50 MCG/ML VIAL ONE (17:23)
[2022-07-14] MEDS: Ondansetron 4 mg VIAL 2 MG/ML 2 ml VIAL IV PRN (17:24)
[2022-07-14] MEDS: TPN 24 HR with Dextrose 50% Water 500 ML, Amino Acid Infusion 10% 850 ML, Sterile Water... CENT\\PICC SCH (18:27)
[2022-07-15] MEDS: Acetaminophen IV 1 GM/100ML 1,000 MG/100 ML BAG IV SCH ×4 (01:18→18:20)
[2022-07-15] MEDS: ZOSYN 3.375 GM Q8H per EXTENDED INFUSION IV SCH ×2 (01:44→09:40)
[2022-07-15] MEDS: Metoprolol Tartrate 5 mg VIAL 5 ml VIAL (1 mg/ml) IV SCH ×4 (02:38→20:53)
[2022-07-15 06:47] LABS: Hematocrit 34.5 % (38-53); Hemoglobin 11.5 g/dL (13.2-16.3); Mean Corpuscular Hemoglobin 30.2 pg (27-33); Mean Corpuscular Hgb Conc 33.2 g/dL (31-36); Mean Platelet Volume 10.1 fL (7.5-11.2); Platelet Count 121 10^3/uL (150-450); Red Blood Count 3.79 10^6/uL (4.06-5.63); Red Cell Distribution Width 16.9 % (12-17)
[2022-07-15 07:20] LABS: Albumin 1.7 g/dL (3.2-5.2); Albumin/Globulin Ratio 0.9 (1-3); Calcium 7.3 mg/dL (8.6-10.3); Creatinine, Serum 0.62 mg/dL (0.67-1.17); Magnesium 1.8 mg/dL (1.9-2.7); Phosphorus 1.8 mg/dL (2.5-5.0); Potassium 3.7 mmol/L (3.5-5.0); Total Bilirubin 0.4 mg/dL (0.2-1.0); Total Protein 3.7 g/dL (6.4-8.9); eGFR CKD-EPI 108.7 (>60)
[2022-07-15] MEDS: Levothyroxine 100 MCG/5 ML VIAL IV SCH (07:30)
[2022-07-15 07:41] LABS: Polychromasia 1+
[2022-07-15 07:42] LABS: ABS Lymphocytes 0.6 10^3/uL (1.0-4.8); ABS Monocytes 0.5 10^3/uL (0.0-1.1); ABS Neutrophils 22.9 10^3/uL (1.5-7.6); ABS Nucleated RBC 0.27 10^3/ul; Eosinophil % 0.2 %; Lymphocyte % 2.5 %; Nucleated Red Blood Cells % 1.1 /100 WBC (0.0-0.4); Platelet Morphology Large
[2022-07-15] MEDS ORDERED: Magnesium Sulfate IV 1GM/100ML 1 GM/100 ML BAG IV ONE (08:12)
[2022-07-15] MEDS: methylPREDNISolone SOD SUCC 40 mg/ml 1 ml VIAL IV SCH (09:53)
[2022-07-15] MEDS ORDERED: inFLIXimab-DYYB (Inflectra) 100 MG/10 ML VIAL IVPB ONE (09:54)
[2022-07-15] MEDS ORDERED: Potassium Phosphate IV 10 MMOL in NS 0.9% 250 ml 250 ML IVPB ONE (10:45)
[2022-07-15] MEDS ORDERED: INFLIXIMAB DYYB IVPB ONE (11:00)
[2022-07-15] MEDS ORDERED: NS 0.9% IVPB ONE (11:00)
[2022-07-15] MEDS: ZOSYN 3.375 GM Q6H - Intermittant 30 min Infusion IV SCH ×2 (16:41→22:28)
[2022-07-15] MEDS: TPN 24 HR with Dextrose 50% Water 500 ML, Amino Acid Infusion 10% 850 ML, Sterile Water... CENT\\PICC SCH (18:35)
[2022-07-16] MEDS: Acetaminophen IV 1 GM/100ML 1,000 MG/100 ML BAG IV SCH ×5 (01:48→23:42)
[2022-07-16] MEDS: Metoprolol Tartrate 5 mg VIAL 5 ml VIAL (1 mg/ml) IV SCH ×4 (02:19→21:03)
[2022-07-16] MEDS: ZOSYN 3.375 GM Q6H - Intermittant 30 min Infusion IV SCH ×4 (04:10→21:46)
[2022-07-16] MEDS: Levothyroxine 100 MCG/5 ML VIAL IV SCH (05:53)
[2022-07-16 07:05] LABS: Calcium 7.4 mg/dL (8.6-10.3); Creatinine, Serum 0.52 mg/dL (0.67-1.17); Potassium 4.2 mmol/L (3.5-5.0); eGFR CKD-EPI 114.7 (>60)
[2022-07-16] MEDS: methylPREDNISolone SOD SUCC 40 mg/ml 1 ml VIAL IV SCH (08:08)
[2022-07-16] MEDS ORDERED: Phenol 1.4% Throat Spray BTL MT PRN (09:10)
[2022-07-16] MEDS ORDERED: Lorazepam PYXIS KEY PRN (09:37)
[2022-07-16] MEDS: HYDROmorphone PCA 20 MG/20 ML PCA.SYRING PCA SCH (10:01)
[2022-07-16] MEDS: LORazepam 2 mg VIAL 1 ml IV PUSH PRN (11:17)
[2022-07-16] MEDS ORDERED: Metoclopramide 5 MG/ML VIAL (10 mg) ONE (11:50)
[2022-07-16] MEDS ORDERED: Rocuronium 50 mg VIAL 10 mg/ml 5 ml VIAL (50 mg) ONE ×2 (11:50→13:50)
[2022-07-16] MEDS ORDERED: Succinylcholine 200 mg VIAL 20 mg/ml 10 ml VIAL (200 mg) ONE (11:50)
[2022-07-16] MEDS ORDERED: fentaNYL 250 mcg/5 ml 50 MCG/ML 5 ml VIAL (250 MCG) ONE (11:50)
[2022-07-16] MEDS ORDERED: Ondansetron 4 mg VIAL 2 MG/ML 2 ml VIAL ONE (11:50)
[2022-07-16] MEDS ORDERED: Propofol 10 MG/ML 20 ML BTL ONE (11:50)
[2022-07-16] MEDS ORDERED: Phenylephrine 40 mcg/mL 10mL (400mcg) SYRINGE ONE ×2 (13:10→15:02)
[2022-07-16] MEDS ORDERED: Metoprolol Tartrate 5 mg VIAL 5 ml VIAL (1 mg/ml) ONE (13:31)
[2022-07-16] MEDS ORDERED: Albumin Human 5% 12.5 GM/250 ML BTL IV ONE (14:46)
[2022-07-16] MEDS ORDERED: Bupivacaine 0.5% SDV PF 30ML VIAL ONE (15:22)
[2022-07-16] MEDS ORDERED: Piperacillin/Tazobac 3.375 GM BAG ONE (16:27)
[2022-07-16] MEDS ORDERED: HYDROmorphone 1 MG/1 ML SYRINGE ONE (17:20)
[2022-07-16] MEDS ORDERED: HYDROmorphone 1 MG/1 ML SYRINGE IV ONE (17:28)
[2022-07-16] MEDS ORDERED: Lactated Ringers 1000 ml BAG 1,000 ML IV ONE (18:53)
[2022-07-16 19:00] LABS: Activated Partial Thrombo Time 37.5 seconds (26.0-38.0); INR 0.99 (0.88-1.18)
[2022-07-16] MEDS: TPN 24 HR with Dextrose 50% Water 500 ML, Amino Acid Infusion 10% 850 ML, Sterile Water... CENT\\PICC SCH (19:08)
[2022-07-16 19:11] LABS: Hematocrit 45.6 % (38-53); Hemoglobin 15.2 g/dL (13.2-16.3); Mean Corpuscular Hemoglobin 29.2 pg (27-33); Mean Corpuscular Hgb Conc 33.4 g/dL (31-36); Mean Corpuscular Volume 87.5 fL (80-97); Red Blood Count 5.22 10^6/uL (4.06-5.63); Red Cell Distribution Width 17.8 % (12-17); White Blood Count 31.2 10^3/uL (3.6-10.2)
[2022-07-16] MEDS: Pantoprazole VIAL 40 MG VIAL IV SCH (19:15)
[2022-07-16 19:18] LABS: Blood Urea Nitrogen 23 mg/dL (6-24); CO2 Carbon Dioxide 26 mmol/L (22-32); Calcium 7.1 mg/dL (8.6-10.3); Chloride 112 mmol/L (101-111); Creatinine, Serum 0.73 mg/dL (0.67-1.17); Glucose 141 mg/dL (70-100); Magnesium 1.9 mg/dL (1.9-2.7); Sodium 143 mmol/L (135-145); eGFR CKD-EPI 103.5 (>60)
[2022-07-16 19:29] LABS: Anion Gap 5 mmol/L (2-16)
[2022-07-16 19:55] LABS: ABS Basophils 0.1 10^3/uL (0.0-0.1); ABS Lymphocytes 0.6 10^3/uL (1.0-4.8); ABS Monocytes 0.7 10^3/uL (0.0-1.1); ABS Neutrophils 29.8 10^3/uL (1.5-7.6); ABS Nucleated RBC 0.25 10^3/ul; Mean Platelet Volume 11.5 fL (7.5-11.2); Nucleated Red Blood Cells % 0.8 /100 WBC (0.0-0.4); Platelet Count 71 10^3/uL (150-450)
[2022-07-17 01:11] LABS: Hematocrit 39.2 % (38-53)
[2022-07-17 02:26] LABS: Phosphorus 2.9 mg/dL (2.5-5.0); Potassium Redraw 4.9 mmol/L (3.5-5.0)
[2022-07-17] MEDS: Metoprolol Tartrate 5 mg VIAL 5 ml VIAL (1 mg/ml) IV SCH ×5 (02:36→20:08)
[2022-07-17] MEDS: ZOSYN 3.375 GM Q6H - Intermittant 30 min Infusion IV SCH ×4 (04:41→21:54)
[2022-07-17 05:31] LABS: Hematocrit 34.5 % (38-53); Hemoglobin 11.5 g/dL (13.2-16.3); Mean Corpuscular Hgb Conc 33.4 g/dL (31-36); Mean Corpuscular Volume 86.6 fL (80-97); Mean Platelet Volume 12.4 fL (7.5-11.2); Platelet Count 54 10^3/uL (150-450); Red Blood Count 3.99 10^6/uL (4.06-5.63); Red Cell Distribution Width 18.5 % (12-17); White Blood Count 33.8 10^3/uL (3.6-10.2)
[2022-07-17 05:57] LABS: Anisocytosis 1+; Blood Urea Nitrogen 22 mg/dL (6-24); CO2 Carbon Dioxide 28 mmol/L (22-32); Calcium 7.2 mg/dL (8.6-10.3); Chloride 113 mmol/L (101-111); Glucose 157 mg/dL (70-100); Platelet Morphology Large; Sodium 143 mmol/L (135-145); eGFR CKD-EPI 109.8 (>60)
[2022-07-17 05:58] LABS: ABS Basophils 0.1 10^3/uL (0.0-0.1); ABS Eosinophils 0.1 10^3/uL (0.0-0.5); ABS Lymphocytes 1.6 10^3/uL (1.0-4.8); ABS Monocytes 1.3 10^3/uL (0.0-1.1); ABS Neutrophils 30.8 10^3/uL (1.5-7.6); ABS Nucleated RBC 0.63 10^3/ul; Eosinophil % 0.2 %; Lymphocyte % 4.7 %; Nucleated Red Blood Cells % 1.9 /100 WBC (0.0-0.4)
[2022-07-17] MEDS: Acetaminophen IV 1 GM/100ML 1,000 MG/100 ML BAG IV SCH ×3 (06:01→18:04)
[2022-07-17] MEDS: Levothyroxine 100 MCG/5 ML VIAL IV SCH (06:03)
[2022-07-17 06:29] LABS: Anion Gap 2 mmol/L (2-16); Potassium 4.7 mmol/L (3.5-5.0)
[2022-07-17 08:15] LABS: ALT 12 U/L (7-52); Alkaline Phosphatase 87 U/L (35-149); Magnesium 1.9 mg/dL (1.9-2.7); Total Protein 3.4 g/dL (6.4-8.9)
[2022-07-17 08:56] LABS: INR 1.07 (0.88-1.18)
[2022-07-17 08:59] LABS: Albumin < 1.7 g/dL (3.2-5.2); Globulin 1.7 g/dL (2-4)
[2022-07-17] MEDS ORDERED: methylPREDNISolone SOD SUCC 40 mg/ml 1 ml VIAL IV SCH (09:00)
[2022-07-17 09:53] LABS: Indirect Bilirubin 0.3 mg/dL (0.3-1.0)
[2022-07-17 10:03] LABS: AST 34 U/L (13-39)
[2022-07-17 13:35] LABS: Hematocrit 31.5 % (38-53); Hemoglobin 10.6 g/dL (13.2-16.3); Mean Corpuscular Hemoglobin 31.5 pg (27-33); Mean Corpuscular Hgb Conc 33.6 g/dL (31-36); Mean Corpuscular Volume 93.8 fL (80-97); Mean Platelet Volume 12.1 fL (7.5-11.2); Platelet Count 51 10^3/uL (150-450); Red Blood Count 3.35 10^6/uL (4.06-5.63); Red Cell Distribution Width 20.9 % (12-17); White Blood Count 31.7 10^3/uL (3.6-10.2)
[2022-07-17 14:02] LABS: Anisocytosis 1+; Toxic Granulation 1+
[2022-07-17 14:03] LABS: ABS Basophils 0.2 10^3/uL (0.0-0.1); ABS Eosinophils 0.1 10^3/uL (0.0-0.5); ABS Lymphocytes 1.4 10^3/uL (1.0-4.8); ABS Nucleated RBC 1.03 10^3/ul; Eosinophil % 0.3 %; Lymphocyte % 4.5 %; Nucleated Red Blood Cells % 3.2 /100 WBC (0.0-0.4)
[2022-07-17 16:14] LABS: Calcium 7.1 mg/dL (8.6-10.3); Creatinine, Serum 0.52 mg/dL (0.67-1.17); eGFR CKD-EPI 114.7 (>60)
[2022-07-17 16:32] LABS: Potassium 4.6 mmol/L (3.5-5.0)
[2022-07-17] MEDS: Pantoprazole VIAL 40 MG VIAL IV SCH (16:35)
[2022-07-17] MEDS ORDERED: TPN 24 HR with Dextrose 50% Water 500 ML, Amino Acid Infusion 10% 1,000 ML, Lipid Emuls... CENT\\PICC SCH (17:00)
[2022-07-17 21:41] LABS: Hematocrit 27.9 % (38-53); Hemoglobin 9.4 g/dL (13.2-16.3)
[2022-07-18] MEDS: Acetaminophen IV 1 GM/100ML 1,000 MG/100 ML BAG IV SCH ×5 (00:24→22:24)
[2022-07-18] MEDS: Metoprolol Tartrate 5 mg VIAL 5 ml VIAL (1 mg/ml) IV SCH ×4 (02:07→21:28)
[2022-07-18] MEDS: ZOSYN 3.375 GM Q6H - Intermittant 30 min Infusion IV SCH ×4 (04:14→22:23)
[2022-07-18 04:41] LABS: Hematocrit 25.9 % (38-53); Hemoglobin 9.1 g/dL (13.2-16.3); Mean Corpuscular Hemoglobin 30.2 pg (27-33); Mean Corpuscular Volume 86.2 fL (80-97); Mean Platelet Volume 11.7 fL (7.5-11.2); Platelet Count 59 10^3/uL (150-450); Red Blood Count 3.01 10^6/uL (4.06-5.63); Red Cell Distribution Width 17.9 % (12-17)
[2022-07-18] MEDS: Levothyroxine 100 MCG/5 ML VIAL IV SCH (05:04)
[2022-07-18 05:06] LABS: ALT 10 U/L (7-52); Alkaline Phosphatase 87 U/L (35-149); Blood Urea Nitrogen 21 mg/dL (6-24); CO2 Carbon Dioxide 26 mmol/L (22-32); Calcium 7.2 mg/dL (8.6-10.3); Chloride 112 mmol/L (101-111); Cholesterol 128 mg/dL; Creatinine, Serum 0.49 mg/dL (0.67-1.17); Glucose 116 mg/dL (70-100); Magnesium 1.9 mg/dL (1.9-2.7); Prealbumin 6 mg/dL (18-38); Sodium 141 mmol/L (135-145); Total Protein 3.7 g/dL (6.4-8.9); Triglycerides 423 mg/dL; eGFR CKD-EPI 116.8 (>60)
[2022-07-18 05:10] LABS: Albumin < 1.7 g/dL (3.2-5.2); Albumin/Globulin Ratio 0.9 (1-3); Anion Gap 3 mmol/L (2-16)
[2022-07-18 05:16] LABS: Anisocytosis 1+; Toxic Granulation 2+
[2022-07-18 05:18] LABS: Polychromasia 1+
[2022-07-18 05:19] LABS: ABS Basophils 0.1 10^3/uL (0.0-0.1); ABS Lymphocytes 1.8 10^3/uL (1.0-4.8); ABS Monocytes 0.9 10^3/uL (0.0-1.1); ABS Neutrophils 28.1 10^3/uL (1.5-7.6); ABS Nucleated RBC 1.51 10^3/ul; Eosinophil % 0.1 %; Lymphocyte % 5.8 %; Nucleated Red Blood Cells % 4.9 /100 WBC (0.0-0.4)
[2022-07-18 05:21] LABS: Platelet Morphology Large; White Blood Count 26.7 10^3/uL (3.6-10.2)
[2022-07-18 08:20] LABS: Potassium, Whole Blood 9.1 mmol/L (3.4-4.5)
[2022-07-18] MEDS ORDERED: methylPREDNISolone SOD SUCC 40 mg/ml 1 ml VIAL IV SCH (09:00)
[2022-07-18] MEDS: Enoxaparin 80 MG/0.8 ML SYR SUBCUT SCH ×2 (09:57→21:28)
[2022-07-18] MEDS: methylPREDNISolone SOD SUCC 40 mg/ml 1 ml VIAL IV SCH (09:57)
[2022-07-18 10:58] LABS: Potassium, Whole Blood 5.9 mmol/L (3.4-4.5)
[2022-07-18] MEDS ORDERED: Enalaprilat IV 1.25 mg/ml 1 ml VIAL (1.25 MG) IV PRN (11:13)
[2022-07-18] MEDS ORDERED: TPN 24 HR with Dextrose 50% Water 500 ML, Amino Acid Infusion 10% 1,000 ML, Lipid Emuls... CENT\\PICC SCH (13:10)
[2022-07-18] MEDS ORDERED: Nicotine PATCH 14 MG/24 HR PATCH TRANSDERM SCH (15:00)
[2022-07-18] MEDS: Pantoprazole VIAL 40 MG VIAL IV SCH (15:20)
[2022-07-18] MEDS: Nicotine PATCH 21 MG/24 HR PATCH TRANSDERM SCH (15:20)
[2022-07-18] MEDS ORDERED: LORazepam 2 mg VIAL 1 ml ONE (17:57)
[2022-07-18] MEDS: LORazepam 2 mg VIAL 1 ml IV PUSH PRN (18:00)
[2022-07-19] MEDS: Metoprolol Tartrate 5 mg VIAL 5 ml VIAL (1 mg/ml) IV SCH ×4 (01:48→20:23)
[2022-07-19] MEDS: ZOSYN 3.375 GM Q6H - Intermittant 30 min Infusion IV SCH ×4 (03:35→22:26)
[2022-07-19 05:51] LABS: ALT 11 U/L (7-52); Alkaline Phosphatase 95 U/L (35-149); Blood Urea Nitrogen 20 mg/dL (6-24); CO2 Carbon Dioxide 24 mmol/L (22-32); Calcium 6.8 mg/dL (8.6-10.3); Chloride 108 mmol/L (101-111); Creatinine, Serum 0.56 mg/dL (0.67-1.17); Glucose 115 mg/dL (70-100); Sodium 136 mmol/L (135-145); Total Protein 4.1 g/dL (6.4-8.9); eGFR CKD-EPI 112.1 (>60)
[2022-07-19 05:55] LABS: White Blood Count 14.6 10^3/uL (3.6-10.2)
[2022-07-19 05:57] LABS: Albumin < 1.7 g/dL (3.2-5.2); Albumin/Globulin Ratio 0.7 (1-3); Anion Gap 4 mmol/L (2-16); Globulin 2.4 g/dL (2-4); Toxic Granulation 1+
[2022-07-19 05:59] LABS: ABS Basophils 0.1 10^3/uL (0.0-0.1); ABS Eosinophils 0.1 10^3/uL (0.0-0.5); ABS Lymphocytes 2.1 10^3/uL (1.0-4.8); ABS Monocytes 1.4 10^3/uL (0.0-1.1); Eosinophil % 0.3 %; Hematocrit 24.4 % (38-53); Hemoglobin 8.6 g/dL (13.2-16.3); Lymphocyte % 10.3 %; Mean Corpuscular Hemoglobin 30.9 pg (27-33); Mean Corpuscular Hgb Conc 35.1 g/dL (31-36); Mean Corpuscular Volume 87.9 fL (80-97); Mean Platelet Volume 11.9 fL (7.5-11.2); Nucleated Red Blood Cells % 12.6 /100 WBC (0.0-0.4); Platelet Count 122 10^3/uL (150-450); Red Blood Count 2.78 10^6/uL (4.06-5.63); Red Cell Distribution Width 17.5 % (12-17)
[2022-07-19] MEDS: Levothyroxine 100 MCG/5 ML VIAL IV SCH (05:59)
[2022-07-19] MEDS: Acetaminophen IV 1 GM/100ML 1,000 MG/100 ML BAG IV SCH ×3 (06:00→21:41)
[2022-07-19 07:43] LABS: Potassium, Whole Blood 4.3 mmol/L (3.4-4.5)
[2022-07-19] MEDS: Nicotine PATCH 21 MG/24 HR PATCH TRANSDERM SCH (07:58)
[2022-07-19] MEDS: methylPREDNISolone SOD SUCC 40 mg/ml 1 ml VIAL IV SCH (07:58)
[2022-07-19 07:59] LABS: Magnesium 1.8 mg/dL (1.9-2.7)
[2022-07-19] MEDS: Enoxaparin 80 MG/0.8 ML SYR SUBCUT SCH ×2 (08:13→20:23)
[2022-07-19] MEDS: HYDROmorphone PCA 20 MG/20 ML PCA.SYRING PCA SCH (09:41)
[2022-07-19] MEDS: TPN CENT\\PICC SCH (15:49)
[2022-07-19] MEDS: [UNRECOGNIZED DRUG - OTHER] CENT\\PICC SCH (15:49)
[2022-07-19] MEDS: WATER CENT\\PICC SCH (15:49)
[2022-07-19] MEDS: AMINO ACID INFUSION CENT\\PICC SCH (15:49)
[2022-07-19] MEDS: DEXTROSE CENT\\PICC SCH (15:49)
[2022-07-19] MEDS: Pantoprazole VIAL 40 MG VIAL IV SCH (16:11)
[2022-07-20] MEDS: Metoprolol Tartrate 5 mg VIAL 5 ml VIAL (1 mg/ml) IV SCH ×4 (02:44→19:46)
[2022-07-20] MEDS: ZOSYN 3.375 GM Q6H - Intermittant 30 min Infusion IV SCH ×2 (04:15→13:08)
[2022-07-20] MEDS: Acetaminophen IV 1 GM/100ML 1,000 MG/100 ML BAG IV SCH ×3 (06:20→22:16)
[2022-07-20] MEDS: Levothyroxine 100 MCG/5 ML VIAL IV SCH (06:21)
[2022-07-20 06:35] LABS: Hematocrit 27.4 % (38-53); Mean Corpuscular Hemoglobin 28.9 pg (27-33); Mean Corpuscular Hgb Conc 32.8 g/dL (31-36); Mean Corpuscular Volume 88.1 fL (80-97); Mean Platelet Volume 11.9 fL (7.5-11.2); Platelet Count 186 10^3/uL (150-450); Red Blood Count 3.11 10^6/uL (4.06-5.63); White Blood Count 20.3 10^3/uL (3.6-10.2)
[2022-07-20 06:53] LABS: Albumin 1.8 g/dL (3.2-5.2); Albumin/Globulin Ratio 0.7 (1-3); Calcium 7.2 mg/dL (8.6-10.3); Creatinine, Serum 0.63 mg/dL (0.67-1.17); Globulin 2.7 g/dL (2-4); Magnesium 1.8 mg/dL (1.9-2.7); Phosphorus 1.9 mg/dL (2.5-5.0); Potassium 4.3 mmol/L (3.5-5.0); Total Bilirubin 0.3 mg/dL (0.2-1.0); Total Protein 4.5 g/dL (6.4-8.9); eGFR CKD-EPI 108.2 (>60)
[2022-07-20 08:52] LABS: ABS Basophils 0.1 10^3/uL (0.0-0.1); ABS Eosinophils 0.1 10^3/uL (0.0-0.5); ABS Lymphocytes 2.4 10^3/uL (1.0-4.8); ABS Monocytes 2.1 10^3/uL (0.0-1.1); ABS Neutrophils 15.5 10^3/uL (1.5-7.6); ABS Nucleated RBC 3.62 10^3/ul; Anisocytosis 1+; Eosinophil % 0.6 %; Lymphocyte % 11.8 %; Nucleated Red Blood Cells % 17.8 /100 WBC (0.0-0.4); Polychromasia 1+
[2022-07-20] MEDS ORDERED: methylPREDNISolone SOD SUCC 40 mg/ml 1 ml VIAL IV SCH (09:00)
[2022-07-20 09:25] LABS: C Reactive Protein 68.47 mg/L (<8.01)
[2022-07-20] MEDS: Nicotine PATCH 21 MG/24 HR PATCH TRANSDERM SCH (09:37)
[2022-07-20] MEDS: Enoxaparin 80 MG/0.8 ML SYR SUBCUT SCH (09:37)
[2022-07-20] MEDS: Cefepime 2 GM in Dextrose 2 GM/50 ML BAG IV SCH ×2 (12:08→21:26)
[2022-07-20] MEDS ORDERED: Magnesium Sulfate IV 1GM/100ML 1 GM/100 ML BAG IV ONE (13:53)
[2022-07-20] MEDS ORDERED: Sodium Phosphate IV 15 MMOL in NS 0.9% 250 ml 250 ML IV ONE (14:15)
[2022-07-20] MEDS: [UNRECOGNIZED DRUG - OTHER] CENT\\PICC SCH (16:01)
[2022-07-20] MEDS: AMINO ACID INFUSION CENT\\PICC SCH (16:01)
[2022-07-20] MEDS: DEXTROSE CENT\\PICC SCH (16:01)
[2022-07-20] MEDS: WATER CENT\\PICC SCH (16:01)
[2022-07-20] MEDS: TPN CENT\\PICC SCH (16:01)
[2022-07-20] MEDS: Pantoprazole VIAL 40 MG VIAL IV SCH (16:52)
[2022-07-20] MEDS: metroNIDAZOLE IV 500 MG/100ML 500 MG/100 ML BAG IVPB SCH (19:57)
[2022-07-20 21:07] LABS: Hematocrit 26.8 % (38-53); Hemoglobin 8.7 g/dL (13.2-16.3)
[2022-07-21] MEDS: Metoprolol Tartrate 5 mg VIAL 5 ml VIAL (1 mg/ml) IV SCH ×4 (02:44→19:56)
[2022-07-21 05:26] LABS: ABS Basophils 0.1 10^3/uL (0.0-0.1); ABS Lymphocytes 2.2 10^3/uL (1.0-4.8); ABS Monocytes 3.1 10^3/uL (0.0-1.1); ABS Neutrophils 23.7 10^3/uL (1.5-7.6); Eosinophil % 0.1 %; Hematocrit 25.1 % (38-53); Hemoglobin 8.3 g/dL (13.2-16.3); Lymphocyte % 7.5 %; Mean Corpuscular Hemoglobin 28.9 pg (27-33); Mean Corpuscular Hgb Conc 33.1 g/dL (31-36); Mean Corpuscular Volume 87.2 fL (80-97); Mean Platelet Volume 11.9 fL (7.5-11.2); Platelet Count 207 10^3/uL (150-450); Red Blood Count 2.88 10^6/uL (4.06-5.63); Red Cell Distribution Width 16.8 % (12-17); White Blood Count 29.1 10^3/uL (3.6-10.2)
[2022-07-21] MEDS: Acetaminophen IV 1 GM/100ML 1,000 MG/100 ML BAG IV SCH ×3 (05:28→22:58)
[2022-07-21] MEDS: Levothyroxine 100 MCG/5 ML VIAL IV SCH (05:30)
[2022-07-21 05:34] LABS: Activated Partial Thrombo Time 29.7 seconds (26.0-38.0); INR 1.03 (0.88-1.18)
[2022-07-21 05:51] LABS: Polychromasia 2+; Stomatocytes 3+
[2022-07-21 05:52] LABS: ABS Nucleated RBC 3.63 10^3/ul; Microcytosis 1+; Nucleated Red Blood Cells % 12.5 /100 WBC (0.0-0.4)
[2022-07-21 06:06] LABS: Albumin 1.8 g/dL (3.2-5.2); Albumin/Globulin Ratio 0.7 (1-3); Creatinine, Serum 0.42 mg/dL (0.67-1.17); Globulin 2.6 g/dL (2-4); Magnesium 1.7 mg/dL (1.9-2.7); Phosphorus 1.8 mg/dL (2.5-5.0); Potassium 4.2 mmol/L (3.5-5.0); Total Bilirubin 0.3 mg/dL (0.2-1.0); Total Protein 4.4 g/dL (6.4-8.9); eGFR CKD-EPI 122.3 (>60)
[2022-07-21 06:24] LABS: RBC Morphology Normal (Normal)
[2022-07-21] MEDS: Nicotine PATCH 21 MG/24 HR PATCH TRANSDERM SCH (07:56)
[2022-07-21] MEDS: Cefepime 2 GM in Dextrose 2 GM/50 ML BAG IV SCH ×2 (08:55→19:54)
[2022-07-21] MEDS ORDERED: methylPREDNISolone SOD SUCC 40 mg/ml 1 ml VIAL IV SCH (09:00)
[2022-07-21] MEDS ORDERED: Magnesium Sulfate 2 gm BAG 2 GM/50 ML BAG IVPB ONE (09:06)
[2022-07-21 09:22] LABS: C Reactive Protein 112.86 mg/L (<8.01)
[2022-07-21] MEDS: metroNIDAZOLE IV 500 MG/100ML 500 MG/100 ML BAG IVPB SCH ×2 (09:35→21:36)
[2022-07-21] MEDS: Sodium Phosphate IV 15 MMOL in NS 0.9% 250 ml 250 ML IV SCH ×2 (11:02→20:03)
[2022-07-21] MEDS: LORazepam 2 mg VIAL 1 ml IV PUSH PRN (12:12)
[2022-07-21] MEDS: Enoxaparin 80 MG/0.8 ML SYR SUBCUT SCH (15:39)
[2022-07-21] MEDS: Ondansetron 4 mg VIAL 2 MG/ML 2 ml VIAL IV PRN (15:47)
[2022-07-21] MEDS: Pantoprazole VIAL 40 MG VIAL IV SCH (16:37)
[2022-07-21] MEDS: DEXTROSE CENT\\PICC SCH (16:37)
[2022-07-21] MEDS: AMINO ACID INFUSION CENT\\PICC SCH (16:37)
[2022-07-21] MEDS: [UNRECOGNIZED DRUG - OTHER] CENT\\PICC SCH (16:37)
[2022-07-21] MEDS: TPN CENT\\PICC SCH (16:37)
[2022-07-21] MEDS: WATER CENT\\PICC SCH (16:37)
[2022-07-21] MEDS ORDERED: Calcium Carb (TUMS) 500 mg CHEW TAB PO ONE (18:14)
[2022-07-21 19:12] LABS: Hematocrit 25.7 % (38-53); Hemoglobin 8.4 g/dL (13.2-16.3)
[2022-07-21] MEDS: HYDROmorphone PCA 20 MG/20 ML PCA.SYRING PCA SCH (19:44)
[2022-07-22] MEDS: Metoprolol Tartrate 5 mg VIAL 5 ml VIAL (1 mg/ml) IV SCH ×4 (02:26→21:52)
[2022-07-22] MEDS: Enoxaparin 80 MG/0.8 ML SYR SUBCUT SCH ×2 (04:59→16:49)
[2022-07-22 05:26] LABS: Hematocrit 24.6 % (38-53); Hemoglobin 7.8 g/dL (13.2-16.3); Mean Corpuscular Hemoglobin 28.3 pg (27-33); Mean Corpuscular Hgb Conc 31.8 g/dL (31-36); Mean Corpuscular Volume 88.9 fL (80-97); Mean Platelet Volume 11.5 fL (7.5-11.2); Platelet Count 239 10^3/uL (150-450); Red Blood Count 2.77 10^6/uL (4.06-5.63); Red Cell Distribution Width 17.1 % (12-17)
[2022-07-22] MEDS: Levothyroxine 100 MCG/5 ML VIAL IV SCH (05:37)
[2022-07-22] MEDS: Acetaminophen IV 1 GM/100ML 1,000 MG/100 ML BAG IV SCH ×3 (05:37→23:03)
[2022-07-22 05:47] LABS: ABS Basophils 0.1 10^3/uL (0.0-0.1); ABS Lymphocytes 1.5 10^3/uL (1.0-4.8); ABS Monocytes 2.9 10^3/uL (0.0-1.1); ABS Neutrophils 26.5 10^3/uL (1.5-7.6); ABS Nucleated RBC 3.24 10^3/ul; Lymphocyte % 4.9 %; Nucleated Red Blood Cells % 10.5 /100 WBC (0.0-0.4)
[2022-07-22 05:49] LABS: Creatinine, Serum 0.51 mg/dL (0.67-1.17); Potassium 4.1 mmol/L (3.5-5.0); eGFR CKD-EPI 115.4 (>60)
[2022-07-22 08:00] LABS: Magnesium 1.8 mg/dL (1.9-2.7); Phosphorus 2.4 mg/dL (2.5-5.0)
[2022-07-22] MEDS ORDERED: Magnesium Sulfate IV 1GM/100ML 1 GM/100 ML BAG IV ONE (08:07)
[2022-07-22] MEDS: Nicotine PATCH 21 MG/24 HR PATCH TRANSDERM SCH (08:21)
[2022-07-22] MEDS: Cefepime 2 GM in Dextrose 2 GM/50 ML BAG IV SCH ×2 (08:28→22:06)
[2022-07-22] MEDS ORDERED: methylPREDNISolone SOD SUCC 40 mg/ml 1 ml VIAL IV SCH (09:00)
[2022-07-22] MEDS: metroNIDAZOLE IV 500 MG/100ML 500 MG/100 ML BAG IVPB SCH ×2 (09:11→23:33)
[2022-07-22] MEDS: Lactated Ringers 1000 ml BAG 1,000 ML IV SCH ×2 (10:11→23:40)
[2022-07-22] MEDS: LORazepam 2 mg VIAL 1 ml IV PUSH PRN (12:12)
[2022-07-22] MEDS: WATER CENT\\PICC SCH (16:56)
[2022-07-22] MEDS: DEXTROSE CENT\\PICC SCH (16:56)
[2022-07-22] MEDS: [UNRECOGNIZED DRUG - OTHER] CENT\\PICC SCH (16:56)
[2022-07-22] MEDS: TPN CENT\\PICC SCH (16:56)
[2022-07-22] MEDS: AMINO ACID INFUSION CENT\\PICC SCH (16:56)
[2022-07-22 17:41] LABS: Hematocrit 24.8 % (38-53); Hemoglobin 7.9 g/dL (13.2-16.3)
[2022-07-23] MEDS: Calcium Carb (TUMS) 500 mg CHEW TAB PO PRN ×2 (01:30→08:58)
[2022-07-23] MEDS: Metoprolol Tartrate 5 mg VIAL 5 ml VIAL (1 mg/ml) IV SCH (01:31)
[2022-07-23] MEDS: Levothyroxine 100 MCG/5 ML VIAL IV SCH (05:41)
[2022-07-23] MEDS: Enoxaparin 80 MG/0.8 ML SYR SUBCUT SCH ×2 (05:41→15:08)
[2022-07-23] MEDS: Acetaminophen IV 1 GM/100ML 1,000 MG/100 ML BAG IV SCH ×3 (05:42→21:57)
[2022-07-23 05:57] LABS: Hematocrit 23.3 % (38-53); Hemoglobin 7.5 g/dL (13.2-16.3); Mean Corpuscular Hemoglobin 28.4 pg (27-33); Mean Corpuscular Hgb Conc 32.4 g/dL (31-36); Mean Corpuscular Volume 87.7 fL (80-97); Mean Platelet Volume 11.3 fL (7.5-11.2); Platelet Count 272 10^3/uL (150-450); Red Blood Count 2.65 10^6/uL (4.06-5.63); Red Cell Distribution Width 17.4 % (12-17); White Blood Count 29.2 10^3/uL (3.6-10.2)
[2022-07-23 06:35] LABS: Albumin 1.8 g/dL (3.2-5.2); Albumin/Globulin Ratio 0.7 (1-3); Calcium 7.1 mg/dL (8.6-10.3); Creatinine, Serum 0.48 mg/dL (0.67-1.17); Globulin 2.6 g/dL (2-4); Magnesium 1.8 mg/dL (1.9-2.7); Phosphorus 1.7 mg/dL (2.5-5.0); Total Bilirubin 0.3 mg/dL (0.2-1.0); Total Protein 4.4 g/dL (6.4-8.9); eGFR CKD-EPI 117.5 (>60)
[2022-07-23] MEDS: HYDROmorphone PCA 20 MG/20 ML PCA.SYRING PCA SCH (07:26)
[2022-07-23] MEDS ORDERED: Magnesium Sulfate 2 gm BAG 2 GM/50 ML BAG IVPB ONE (07:56)
[2022-07-23 08:33] LABS: ABS Basophils 0.1 10^3/uL (0.0-0.1); ABS Lymphocytes 1.6 10^3/uL (1.0-4.8); ABS Neutrophils 25.4 10^3/uL (1.5-7.6); ABS Nucleated RBC 3.04 10^3/ul; Anisocytosis 1+; Eosinophil % 0.1 %; Lymphocyte % 5.6 %; Nucleated Red Blood Cells % 10.4 /100 WBC (0.0-0.4); Polychromasia 1+
[2022-07-23] MEDS ORDERED: Sodium Phosphate IV 15 MMOL in NS 0.9% 250 ml 250 ML IV ONE (08:45)
[2022-07-23] MEDS: Cefepime 2 GM in Dextrose 2 GM/50 ML BAG IV SCH ×2 (08:51→22:36)
[2022-07-23] MEDS: Nicotine PATCH 21 MG/24 HR PATCH TRANSDERM SCH (08:53)
[2022-07-23] MEDS: metroNIDAZOLE IV 500 MG/100ML 500 MG/100 ML BAG IVPB SCH ×2 (11:48→23:49)
[2022-07-23] MEDS ORDERED: HYDROmorphone 0.5 MG/0.5 ML SYRINGE IV SLOW PU PRN (13:03)
[2022-07-23] MEDS: Ondansetron 4 mg VIAL 2 MG/ML 2 ml VIAL IV PRN ×2 (16:39→20:17)
[2022-07-23] MEDS ORDERED: DEXTROSE CENT\\PICC SCH (17:00)
[2022-07-23] MEDS ORDERED: AMINO ACID INFUSION CENT\\PICC SCH (17:00)
[2022-07-23] MEDS ORDERED: [UNRECOGNIZED DRUG - OTHER] CENT\\PICC SCH (17:00)
[2022-07-23] MEDS ORDERED: WATER CENT\\PICC SCH (17:00)
[2022-07-23] MEDS ORDERED: TPN CENT\\PICC SCH (17:00)
[2022-07-23] MEDS: HYDROmorphone 1 MG/1 ML SYRINGE IV SLOW PU PRN ×2 (20:17→23:49)
[2022-07-24] MEDS: Acetaminophen IV 1 GM/100ML 1,000 MG/100 ML BAG IV SCH (05:55)
[2022-07-24] MEDS: Enoxaparin 80 MG/0.8 ML SYR SUBCUT SCH ×2 (05:56→17:09)
[2022-07-24 08:19] LABS: Calcium 6.7 mg/dL (8.6-10.3); Creatinine, Serum 0.53 mg/dL (0.67-1.17); Magnesium 1.9 mg/dL (1.9-2.7); Phosphorus 2.1 mg/dL (2.5-5.0); Potassium 3.9 mmol/L (3.5-5.0)
[2022-07-24] MEDS: metroNIDAZOLE IV 500 MG/100ML 500 MG/100 ML BAG IVPB SCH ×2 (08:28→20:50)
[2022-07-24] MEDS: Nicotine PATCH 21 MG/24 HR PATCH TRANSDERM SCH (08:31)
[2022-07-24] MEDS: HYDROmorphone 1 MG/1 ML SYRINGE IV SLOW PU PRN (08:47)
[2022-07-24] MEDS: Ondansetron 4 mg VIAL 2 MG/ML 2 ml VIAL IV PRN ×2 (08:47→20:45)
[2022-07-24] MEDS: Levothyroxine 100 MCG/5 ML VIAL IV SCH (08:52)
[2022-07-24] MEDS: Cefepime 2 GM in Dextrose 2 GM/50 ML BAG IV SCH ×2 (09:55→20:06)
[2022-07-24] MEDS ORDERED: Magnesium Sulfate IV 1GM/100ML 1 GM/100 ML BAG IV ONE (11:08)
[2022-07-24 11:17] LABS: Hematocrit 21.2 % (38-53); Hemoglobin 7.4 g/dL (13.2-16.3); Mean Corpuscular Hemoglobin 33.3 pg (27-33); Platelet Count 286 10^3/uL (150-450); Red Blood Count 2.23 10^6/uL (4.06-5.63); Red Cell Distribution Width 18.8 % (12-17); White Blood Count 21.6 10^3/uL (3.6-10.2)
[2022-07-24 12:47] LABS: Anisocytosis 1+
[2022-07-24 12:48] LABS: ABS Basophils 0.1 10^3/uL (0.0-0.1); ABS Lymphocytes 1.1 10^3/uL (1.0-4.8); ABS Neutrophils 19.4 10^3/uL (1.5-7.6); ABS Nucleated RBC 3.04 10^3/ul; Eosinophil % 0.1 %; Lymphocyte % 5.1 %; Nucleated Red Blood Cells % 14.1 /100 WBC (0.0-0.4); Polychromasia 1+
[2022-07-24] MEDS ORDERED: Sodium Phosphate IV 15 MMOL in NS 0.9% 250 ml 250 ML IV ONE (13:00)
[2022-07-24] MEDS: WATER CENT\\PICC SCH (17:04)
[2022-07-24] MEDS: [UNRECOGNIZED DRUG - OTHER] CENT\\PICC SCH (17:04)
[2022-07-24] MEDS: AMINO ACID INFUSION CENT\\PICC SCH (17:04)
[2022-07-24] MEDS: DEXTROSE CENT\\PICC SCH (17:04)
[2022-07-24] MEDS: TPN CENT\\PICC SCH (17:04)
[2022-07-25] MEDS: Ondansetron 4 mg VIAL 2 MG/ML 2 ml VIAL IV PRN (03:21)
[2022-07-25] MEDS: Enoxaparin 80 MG/0.8 ML SYR SUBCUT SCH ×2 (03:21→14:13)
[2022-07-25] MEDS: HYDROmorphone 1 MG/1 ML SYRINGE IV SLOW PU PRN ×2 (03:24→10:00)
[2022-07-25 06:26] LABS: White Blood Count 14.7 10^3/uL (3.6-10.2)
[2022-07-25 06:27] LABS: Hematocrit 25.9 % (38-53); Hemoglobin 8.5 g/dL (13.2-16.3); Mean Corpuscular Hemoglobin 28.2 pg (27-33); Mean Corpuscular Volume 85.7 fL (80-97); Mean Platelet Volume 10.8 fL (7.5-11.2); Platelet Count 302 10^3/uL (150-450); Red Blood Count 3.03 10^6/uL (4.06-5.63); Red Cell Distribution Width 16.7 % (12-17)
[2022-07-25 06:29] LABS: ABS Basophils 0.1 10^3/uL (0.0-0.1); ABS Lymphocytes 1.4 10^3/uL (1.0-4.8); ABS Monocytes 1.2 10^3/uL (0.0-1.1); ABS Neutrophils 16.9 10^3/uL (1.5-7.6); Anisocytosis 1+; Eosinophil % 0.1 %; Nucleated Red Blood Cells % 20.3 /100 WBC (0.0-0.4); Polychromasia 1+
[2022-07-25 07:01] LABS: Albumin 1.7 g/dL (3.2-5.2); Albumin/Globulin Ratio 0.6 (1-3); C Reactive Protein 211.36 mg/L (<8.01); Calcium 6.8 mg/dL (8.6-10.3); Creatinine, Serum 0.57 mg/dL (0.67-1.17); Globulin 2.8 g/dL (2-4); Magnesium 1.9 mg/dL (1.9-2.7); Phosphorus 2.1 mg/dL (2.5-5.0); Potassium 3.9 mmol/L (3.5-5.0); Total Bilirubin 0.4 mg/dL (0.2-1.0); Total Protein 4.5 g/dL (6.4-8.9); eGFR CKD-EPI 111.5 (>60)
[2022-07-25] MEDS ORDERED: Sodium Phosphate IV 15 MMOL in NS 0.9% 250 ml 250 ML IV ONE (07:38)
[2022-07-25] MEDS ORDERED: Magnesium Sulfate IV 1GM/100ML 1 GM/100 ML BAG IV ONE (07:39)
[2022-07-25] MEDS: Cefepime 2 GM in Dextrose 2 GM/50 ML BAG IV SCH ×2 (07:41→20:22)
[2022-07-25] MEDS: metroNIDAZOLE IV 500 MG/100ML 500 MG/100 ML BAG IVPB SCH ×2 (08:06→21:47)
[2022-07-25] MEDS: Nicotine PATCH 21 MG/24 HR PATCH TRANSDERM SCH (10:35)
[2022-07-25] MEDS: [UNRECOGNIZED DRUG - OTHER] CENT\\PICC SCH (16:16)
[2022-07-25] MEDS: WATER CENT\\PICC SCH (16:16)
[2022-07-25] MEDS: DEXTROSE CENT\\PICC SCH (16:16)
[2022-07-25] MEDS: AMINO ACID INFUSION CENT\\PICC SCH (16:16)
[2022-07-25] MEDS: TPN CENT\\PICC SCH (16:16)
[2022-07-26 04:07] LABS: Hematocrit 24.5 % (38-53); Hemoglobin 8.1 g/dL (13.2-16.3); Mean Corpuscular Hemoglobin 28.4 pg (27-33); Mean Corpuscular Hgb Conc 32.9 g/dL (31-36); Mean Corpuscular Volume 86.1 fL (80-97); Mean Platelet Volume 10.4 fL (7.5-11.2); Platelet Count 301 10^3/uL (150-450); Red Blood Count 2.84 10^6/uL (4.06-5.63); Red Cell Distribution Width 17.6 % (12-17); White Blood Count 17.1 10^3/uL (3.6-10.2)
[2022-07-26 04:32] LABS: Acanthocytes 1+; Hypochromasia 1+; Polychromasia 1+
[2022-07-26 04:33] LABS: ABS Basophils 0.1 10^3/uL (0.0-0.1); ABS Lymphocytes 1.5 10^3/uL (1.0-4.8); ABS Monocytes 1.4 10^3/uL (0.0-1.1); ABS Neutrophils 14.2 10^3/uL (1.5-7.6); ABS Nucleated RBC 3.17 10^3/ul; Eosinophil % 0.1 %; Lymphocyte % 8.6 %; Nucleated Red Blood Cells % 18.5 /100 WBC (0.0-0.4)
[2022-07-26 04:37] LABS: Albumin 1.7 g/dL (3.2-5.2); Calcium 6.8 mg/dL (8.6-10.3); Magnesium 1.9 mg/dL (1.9-2.7); Potassium 3.9 mmol/L (3.5-5.0); Total Bilirubin 0.3 mg/dL (0.2-1.0)
[2022-07-26 04:43] LABS: Albumin/Globulin Ratio 0.6 (1-3); Creatinine, Serum 0.56 mg/dL (0.67-1.17); Globulin 2.8 g/dL (2-4); Phosphorus 2.2 mg/dL (2.5-5.0); Total Protein 4.5 g/dL (6.4-8.9); eGFR CKD-EPI 112.1 (>60)
[2022-07-26] MEDS: Enoxaparin 80 MG/0.8 ML SYR SUBCUT SCH ×2 (05:54→16:46)
[2022-07-26] MEDS: Nicotine PATCH 21 MG/24 HR PATCH TRANSDERM SCH (07:25)
[2022-07-26] MEDS: Cefepime 2 GM in Dextrose 2 GM/50 ML BAG IV SCH ×2 (07:26→20:31)
[2022-07-26] MEDS ORDERED: Sodium Phosphate IV 15 MMOL in NS 0.9% 250 ml 250 ML IV ONE (07:46)
[2022-07-26] MEDS ORDERED: Magnesium Sulfate 2 gm BAG 2 GM/50 ML BAG IVPB ONE (07:46)
[2022-07-26] MEDS: metroNIDAZOLE IV 500 MG/100ML 500 MG/100 ML BAG IVPB SCH ×2 (09:34→21:35)
[2022-07-26] MEDS: [UNRECOGNIZED DRUG - OTHER] CENT\\PICC SCH (16:41)
[2022-07-26] MEDS: TPN CENT\\PICC SCH (16:41)
[2022-07-26] MEDS: AMINO ACID INFUSION CENT\\PICC SCH (16:41)
[2022-07-26] MEDS: WATER CENT\\PICC SCH (16:41)
[2022-07-26] MEDS: DEXTROSE CENT\\PICC SCH (16:41)
[2022-07-26] MEDS: Ondansetron 4 mg VIAL 2 MG/ML 2 ml VIAL IV PRN (21:46)
[2022-07-27] MEDS: Enoxaparin 80 MG/0.8 ML SYR SUBCUT SCH ×2 (05:34→16:32)
[2022-07-27] MEDS: Cefepime 2 GM in Dextrose 2 GM/50 ML BAG IV SCH ×2 (07:58→20:14)
[2022-07-27] MEDS: Nicotine PATCH 21 MG/24 HR PATCH TRANSDERM SCH (08:13)
[2022-07-27] MEDS: metroNIDAZOLE IV 500 MG/100ML 500 MG/100 ML BAG IVPB SCH ×2 (09:13→21:24)
[2022-07-27 12:32] LABS: Calcium 7.6 mg/dL (8.6-10.3); Creatinine, Serum 0.59 mg/dL (0.67-1.17); Magnesium 2.6 mg/dL (1.9-2.7); Total Bilirubin 0.2 mg/dL (0.2-1.0); Total Protein 4.5 g/dL (6.4-8.9); eGFR CKD-EPI 110.4 (>60)
[2022-07-27 12:35] LABS: Albumin 1.6 g/dL (3.2-5.2); Albumin/Globulin Ratio 0.6 (1-3); Globulin 2.9 g/dL (2-4)
[2022-07-27] MEDS: TPN CENT\\PICC SCH (16:34)
[2022-07-27] MEDS: WATER CENT\\PICC SCH (16:34)
[2022-07-27] MEDS: AMINO ACID INFUSION CENT\\PICC SCH (16:34)
[2022-07-27] MEDS: [UNRECOGNIZED DRUG - OTHER] CENT\\PICC SCH (16:34)
[2022-07-27] MEDS: DEXTROSE CENT\\PICC SCH (16:34)
[2022-07-28] MEDS: Enoxaparin 80 MG/0.8 ML SYR SUBCUT SCH ×2 (05:44→15:50)
[2022-07-28 06:27] LABS: Albumin 1.8 g/dL (3.2-5.2); Albumin/Globulin Ratio 0.6 (1-3); Creatinine, Serum 0.5 mg/dL (0.67-1.17); Globulin 3.1 g/dL (2-4); Magnesium 1.7 mg/dL (1.9-2.7); Phosphorus 2.3 mg/dL (2.5-5.0); Potassium 4.3 mmol/L (3.5-5.0); Total Bilirubin 0.3 mg/dL (0.2-1.0); Total Protein 4.9 g/dL (6.4-8.9)
[2022-07-28] MEDS ORDERED: Magnesium Sulfate 2 gm BAG 2 GM/50 ML BAG IVPB ONE (07:13)
[2022-07-28] MEDS: Nicotine PATCH 21 MG/24 HR PATCH TRANSDERM SCH (08:57)
[2022-07-28] MEDS: Cefepime 2 GM in Dextrose 2 GM/50 ML BAG IV SCH ×2 (09:00→21:09)
[2022-07-28] MEDS: metroNIDAZOLE IV 500 MG/100ML 500 MG/100 ML BAG IVPB SCH ×2 (09:47→21:42)
[2022-07-28] MEDS: TPN 24 HR with Dextrose 50% Water 500 ML, Amino Acid Infusion 10% 1,000 ML, Lipid Emuls... CENT\\PICC SCH (17:05)
[2022-07-29] MEDS: Enoxaparin 80 MG/0.8 ML SYR SUBCUT SCH ×2 (05:28→15:38)
[2022-07-29 06:31] LABS: C Reactive Protein 79.51 mg/L (<8.01); Calcium 7.2 mg/dL (8.6-10.3); Creatinine, Serum 0.54 mg/dL (0.67-1.17); HDL Cholesterol 22.3 mg/dL; Magnesium 1.8 mg/dL (1.9-2.7); Phosphorus 2.8 mg/dL (2.5-5.0); Potassium 4.3 mmol/L (3.5-5.0); eGFR CKD-EPI 113.4 (>60)
[2022-07-29] MEDS: Nicotine PATCH 21 MG/24 HR PATCH TRANSDERM SCH (08:09)
[2022-07-29] MEDS: Cefepime 2 GM in Dextrose 2 GM/50 ML BAG IV SCH ×2 (08:12→21:45)
[2022-07-29] MEDS: metroNIDAZOLE IV 500 MG/100ML 500 MG/100 ML BAG IVPB SCH ×2 (09:02→22:39)
[2022-07-29] MEDS ORDERED: inFLIXimab-DYYB (Inflectra) 100 MG/10 ML VIAL IVPB ONE (10:31)
[2022-07-29] MEDS ORDERED: Magnesium Sulfate 2 gm BAG 2 GM/50 ML BAG IVPB ONE (11:56)
[2022-07-29] MEDS ORDERED: NS 0.9% IVPB ONE (12:00)
[2022-07-29] MEDS ORDERED: INFLIXIMAB DYYB IVPB ONE (12:00)
[2022-07-29] MEDS: TPN 24 HR with Dextrose 50% Water 500 ML, Amino Acid Infusion 10% 1,000 ML, Lipid Emuls... CENT\\PICC SCH (16:56)
[2022-07-30] MEDS: Enoxaparin 80 MG/0.8 ML SYR SUBCUT SCH ×2 (04:49→15:04)
[2022-07-30 05:50] LABS: Albumin/Globulin Ratio 0.6 (1-3); Calcium 7.3 mg/dL (8.6-10.3); Creatinine, Serum 0.5 mg/dL (0.67-1.17); Globulin 3.5 g/dL (2-4); Magnesium 1.9 mg/dL (1.9-2.7); Phosphorus 2.8 mg/dL (2.5-5.0); Potassium 4.7 mmol/L (3.5-5.0); Total Bilirubin 0.3 mg/dL (0.2-1.0); Total Protein 5.5 g/dL (6.4-8.9)
[2022-07-30 07:59] LABS: Hematocrit 27.3 % (38-53); Hemoglobin 8.9 g/dL (13.2-16.3); Mean Corpuscular Hgb Conc 32.6 g/dL (31-36); Mean Corpuscular Volume 85.8 fL (80-97); Mean Platelet Volume 9.8 fL (7.5-11.2); Platelet Count 482 10^3/uL (150-450); Red Blood Count 3.18 10^6/uL (4.06-5.63); Red Cell Distribution Width 17.2 % (12-17); White Blood Count 17.9 10^3/uL (3.6-10.2)
[2022-07-30 08:02] LABS: ABS Basophils 0.2 10^3/uL (0.0-0.1); ABS Eosinophils 0.5 10^3/uL (0.0-0.5); ABS Lymphocytes 2.2 10^3/uL (1.0-4.8); ABS Monocytes 2.2 10^3/uL (0.0-1.1); ABS Neutrophils 12.8 10^3/uL (1.5-7.6); ABS Nucleated RBC 0.91 10^3/ul; Anisocytosis 1+; Eosinophil % 2.9 %; Lymphocyte % 12.1 %; Nucleated Red Blood Cells % 5.1 /100 WBC (0.0-0.4); Polychromasia 1+
[2022-07-30] MEDS: Nicotine PATCH 21 MG/24 HR PATCH TRANSDERM SCH (08:57)
[2022-07-30] MEDS: metroNIDAZOLE IV 500 MG/100ML 500 MG/100 ML BAG IVPB SCH ×2 (08:57→22:59)
[2022-07-30] MEDS: Cefepime 2 GM in Dextrose 2 GM/50 ML BAG IV SCH ×2 (08:57→22:24)
[2022-07-30] MEDS ORDERED: TPN 24 HR with Dextrose 50% Water 500 ML, Amino Acid Infusion 10% 1,000 ML, Lipid Emuls... CENT\\PICC SCH (17:00)
[2022-07-30] MEDS: TPN 24 HR with Dextrose 50% Water 500 ML, Amino Acid Infusion 10% 1,000 ML, Lipid Emuls... CENT\\PICC SCH (18:40)
[2022-07-31] MEDS: Enoxaparin 80 MG/0.8 ML SYR SUBCUT SCH ×2 (03:20→16:40)
[2022-07-31] MEDS: Nicotine PATCH 21 MG/24 HR PATCH TRANSDERM SCH (09:59)
[2022-07-31] MEDS: Cefepime 2 GM in Dextrose 2 GM/50 ML BAG IV SCH ×2 (10:00→21:34)
[2022-07-31] MEDS: metroNIDAZOLE IV 500 MG/100ML 500 MG/100 ML BAG IVPB SCH ×2 (11:02→23:00)
[2022-07-31] MEDS: TPN 24 HR with Dextrose 50% Water 500 ML, Amino Acid Infusion 10% 1,000 ML, Lipid Emuls... CENT\\PICC SCH (16:49)
[2022-08-01] MEDS: Enoxaparin 80 MG/0.8 ML SYR SUBCUT SCH (05:58)
[2022-08-01 06:32] LABS: Albumin 2.3 g/dL (3.2-5.2); Albumin/Globulin Ratio 0.5 (1-3); Calcium 8.1 mg/dL (8.6-10.3); Creatinine, Serum 0.51 mg/dL (0.67-1.17); Globulin 4.3 g/dL (2-4); Magnesium 1.7 mg/dL (1.9-2.7); Potassium 4.3 mmol/L (3.5-5.0); Total Bilirubin 0.4 mg/dL (0.2-1.0); Total Protein 6.6 g/dL (6.4-8.9); eGFR CKD-EPI 115.4 (>60)
[2022-08-01] MEDS: metroNIDAZOLE IV 500 MG/100ML 500 MG/100 ML BAG IVPB SCH ×2 (07:34→22:25)
[2022-08-01] MEDS: Nicotine PATCH 21 MG/24 HR PATCH TRANSDERM SCH (07:38)
[2022-08-01] MEDS: Cefepime 2 GM in Dextrose 2 GM/50 ML BAG IV SCH ×2 (08:36→21:45)
[2022-08-01 16:00] LABS: Hemoglobin 8.9 g/dL (13.2-16.3); Mean Corpuscular Hemoglobin 28.2 pg (27-33); Mean Corpuscular Hgb Conc 32.8 g/dL (31-36); Mean Corpuscular Volume 85.8 fL (80-97); Mean Platelet Volume 9.5 fL (7.5-11.2); Platelet Count 624 10^3/uL (150-450); Red Blood Count 3.15 10^6/uL (4.06-5.63); White Blood Count 19.1 10^3/uL (3.6-10.2)
[2022-08-01 16:03] LABS: Polychromasia 1+
[2022-08-01 16:04] LABS: Anisocytosis 1+
[2022-08-01 16:05] LABS: Platelet Morphology Large
[2022-08-01 16:06] LABS: ABS Basophils 0.1 10^3/uL (0.0-0.1); ABS Eosinophils 0.6 10^3/uL (0.0-0.5); ABS Lymphocytes 2.9 10^3/uL (1.0-4.8); ABS Monocytes 1.9 10^3/uL (0.0-1.1); ABS Neutrophils 13.6 10^3/uL (1.5-7.6); ABS Nucleated RBC 0.37 10^3/ul; Eosinophil % 3.3 %; Lymphocyte % 15.4 %; Nucleated Red Blood Cells % 1.9 /100 WBC (0.0-0.4)
[2022-08-01] MEDS: TPN 24 HR with Dextrose 50% Water 500 ML, Amino Acid Infusion 10% 1,000 ML, Lipid Emuls... CENT\\PICC SCH (16:37)
[2022-08-02 06:32] LABS: Hematocrit 28.3 % (38-53); Hemoglobin 9.2 g/dL (13.2-16.3); Mean Corpuscular Hemoglobin 28.1 pg (27-33); Mean Corpuscular Hgb Conc 32.5 g/dL (31-36); Mean Corpuscular Volume 86.6 fL (80-97); Mean Platelet Volume 9.1 fL (7.5-11.2); Platelet Count 680 10^3/uL (150-450); Red Blood Count 3.26 10^6/uL (4.06-5.63); Red Cell Distribution Width 18.2 % (12-17); White Blood Count 19.4 10^3/uL (3.6-10.2)
[2022-08-02 06:50] LABS: Albumin 2.4 g/dL (3.2-5.2); Albumin/Globulin Ratio 0.5 (1-3); Calcium 8.5 mg/dL (8.6-10.3); Creatinine, Serum 0.57 mg/dL (0.67-1.17); Globulin 4.8 g/dL (2-4); Magnesium 1.8 mg/dL (1.9-2.7); Potassium 4.1 mmol/L (3.5-5.0); Total Bilirubin 0.3 mg/dL (0.2-1.0); Total Protein 7.2 g/dL (6.4-8.9); eGFR CKD-EPI 111.5 (>60)
[2022-08-02] MEDS ORDERED: Magnesium Sulfate 2 gm BAG 2 GM/50 ML BAG IVPB ONE (07:15)
[2022-08-02] MEDS: Nicotine PATCH 21 MG/24 HR PATCH TRANSDERM SCH (08:39)
[2022-08-02] MEDS ORDERED: Enoxaparin 80 MG/0.8 ML SYR SUBCUT SCH (09:00)
[2022-08-02 09:45] LABS: Polychromasia 1+
[2022-08-02 09:46] LABS: ABS Basophils 0.3 10^3/uL (0.0-0.1); ABS Eosinophils 0.7 10^3/uL (0.0-0.5); ABS Lymphocytes 2.8 10^3/uL (1.0-4.8); ABS Neutrophils 13.6 10^3/uL (1.5-7.6); ABS Nucleated RBC 0.34 10^3/ul; Anisocytosis 2+; Eosinophil % 3.7 %; Lymphocyte % 14.4 %; Nucleated Red Blood Cells % 1.7 /100 WBC (0.0-0.4)
[2022-08-02] MEDS: Cefepime 2 GM in Dextrose 2 GM/50 ML BAG IV SCH (10:21)
[2022-08-02] MEDS: metroNIDAZOLE IV 500 MG/100ML 500 MG/100 ML BAG IVPB SCH (11:01)
[2022-08-02] MEDS: Enoxaparin 40 MG/0.4 ML SYR SUBCUT SCH (11:51)
[2022-08-02] MEDS: TPN 24 HR with Dextrose 50% Water 500 ML, Amino Acid Infusion 10% 1,000 ML, Lipid Emuls... CENT\\PICC SCH (17:18)
[2022-08-03 06:10] LABS: Hematocrit 27.9 % (38-53); Hemoglobin 9.1 g/dL (13.2-16.3); Mean Corpuscular Hemoglobin 28.9 pg (27-33); Mean Corpuscular Hgb Conc 32.6 g/dL (31-36); Mean Corpuscular Volume 88.6 fL (80-97); Mean Platelet Volume 9.2 fL (7.5-11.2); Platelet Count 734 10^3/uL (150-450); Red Blood Count 3.14 10^6/uL (4.06-5.63); Red Cell Distribution Width 18.3 % (12-17); White Blood Count 18.2 10^3/uL (3.6-10.2)
[2022-08-03 06:15] LABS: ABS Basophils 0.2 10^3/uL (0.0-0.1); ABS Eosinophils 0.7 10^3/uL (0.0-0.5); ABS Lymphocytes 2.7 10^3/uL (1.0-4.8); ABS Neutrophils 12.5 10^3/uL (1.5-7.6); ABS Nucleated RBC 0.24 10^3/ul; Eosinophil % 4.1 %; Nucleated Red Blood Cells % 1.3 /100 WBC (0.0-0.4)
[2022-08-03 06:42] LABS: Albumin 2.3 g/dL (3.2-5.2); Calcium 8.1 mg/dL (8.6-10.3); Magnesium 1.8 mg/dL (1.9-2.7); Potassium 4.8 mmol/L (3.5-5.0); Total Bilirubin 0.3 mg/dL (0.2-1.0)
[2022-08-03 06:48] LABS: Albumin/Globulin Ratio 0.5 (1-3); Creatinine, Serum 0.55 mg/dL (0.67-1.17); Globulin 4.5 g/dL (2-4); Phosphorus 3.6 mg/dL (2.5-5.0); Total Protein 6.8 g/dL (6.4-8.9); eGFR CKD-EPI 112.8 (>60)
[2022-08-03] MEDS: Nicotine PATCH 21 MG/24 HR PATCH TRANSDERM SCH (08:36)
[2022-08-03] MEDS ORDERED: Magnesium Sulfate 2 gm BAG 2 GM/50 ML BAG IVPB ONE (09:40)
[2022-08-03] MEDS: Enoxaparin 40 MG/0.4 ML SYR SUBCUT SCH (10:29)
[2022-08-03] MEDS: TPN 24 HR with Dextrose 50% Water 500 ML, Amino Acid Infusion 10% 1,000 ML, Lipid Emuls... CENT\\PICC SCH (16:42)
[2022-08-04 06:19] LABS: Albumin 2.5 g/dL (3.2-5.2); Albumin/Globulin Ratio 0.5 (1-3); Calcium 8.7 mg/dL (8.6-10.3); Creatinine, Serum 0.52 mg/dL (0.67-1.17); Globulin 5.2 g/dL (2-4); Magnesium 1.8 mg/dL (1.9-2.7); Phosphorus 3.3 mg/dL (2.5-5.0); Potassium 4.5 mmol/L (3.5-5.0); Total Bilirubin 0.3 mg/dL (0.2-1.0); Total Protein 7.7 g/dL (6.4-8.9); eGFR CKD-EPI 114.7 (>60)
[2022-08-04] MEDS: Nicotine PATCH 21 MG/24 HR PATCH TRANSDERM SCH (08:02)
[2022-08-04] MEDS: Enoxaparin 40 MG/0.4 ML SYR SUBCUT SCH (08:03)
[2022-08-04] MEDS: Enoxaparin 60 MG/0.6 ML SYR SUBCUT SCH (14:04)
[2022-08-04] MEDS: TPN 24 HR with Dextrose 50% Water 500 ML, Amino Acid Infusion 10% 1,000 ML, Lipid Emuls... CENT\\PICC SCH (17:46)
[2022-08-05] MEDS: Enoxaparin 60 MG/0.6 ML SYR SUBCUT SCH ×2 (01:56→14:21)
[2022-08-05] MEDS: Nicotine PATCH 21 MG/24 HR PATCH TRANSDERM SCH (08:35)
[2022-08-05] MEDS ORDERED: Morphine 2 MG/ML SYRINGE IV ONE (12:04)
[2022-08-05] MEDS: TPN 24 HR with Dextrose 50% Water 500 ML, Amino Acid Infusion 10% 1,000 ML, Lipid Emuls... CENT\\PICC SCH (16:52)
[2022-08-06] MEDS: Enoxaparin 60 MG/0.6 ML SYR SUBCUT SCH ×2 (02:47→14:07)
[2022-08-06 06:12] LABS: Hematocrit 28.4 % (38-53); Hemoglobin 9.1 g/dL (13.2-16.3); Mean Corpuscular Hemoglobin 28.2 pg (27-33); Mean Corpuscular Hgb Conc 32.2 g/dL (31-36); Mean Corpuscular Volume 87.7 fL (80-97); Mean Platelet Volume 9.2 fL (7.5-11.2); Platelet Count 814 10^3/uL (150-450); Red Blood Count 3.23 10^6/uL (4.06-5.63); Red Cell Distribution Width 17.9 % (12-17); White Blood Count 16.2 10^3/uL (3.6-10.2)
[2022-08-06 06:28] LABS: Albumin 2.6 g/dL (3.2-5.2); Albumin/Globulin Ratio 0.5 (1-3); Calcium 8.7 mg/dL (8.6-10.3); Creatinine, Serum 0.52 mg/dL (0.67-1.17); Globulin 5.2 g/dL (2-4); Magnesium 1.6 mg/dL (1.9-2.7); Phosphorus 3.5 mg/dL (2.5-5.0); Potassium 4.2 mmol/L (3.5-5.0); Total Bilirubin 0.3 mg/dL (0.2-1.0); Total Protein 7.8 g/dL (6.4-8.9); eGFR CKD-EPI 114.7 (>60)
[2022-08-06] MEDS: Nicotine PATCH 21 MG/24 HR PATCH TRANSDERM SCH (09:51)
[2022-08-06 09:55] LABS: Anisocytosis 2+; Hypochromasia 1+
[2022-08-06 09:56] LABS: ABS Basophils 0.2 10^3/uL (0.0-0.1); ABS Eosinophils 0.6 10^3/uL (0.0-0.5); ABS Lymphocytes 3.5 10^3/uL (1.0-4.8); ABS Monocytes 1.7 10^3/uL (0.0-1.1); ABS Neutrophils 10.2 10^3/uL (1.5-7.6); ABS Nucleated RBC 0.28 10^3/ul; Eosinophil % 3.4 %; Lymphocyte % 21.4 %; Nucleated Red Blood Cells % 1.8 /100 WBC (0.0-0.4)
[2022-08-06] MEDS ORDERED: Magnesium Sulfate 2 gm BAG 2 GM/50 ML BAG IVPB ONE (11:24)
[2022-08-06] MEDS: TPN 24 HR with Dextrose 50% Water 500 ML, Amino Acid Infusion 10% 1,000 ML, Lipid Emuls... CENT\\PICC SCH (16:18)
[2022-08-07] MEDS: Enoxaparin 60 MG/0.6 ML SYR SUBCUT SCH ×2 (03:14→14:37)
[2022-08-07] MEDS: Nicotine PATCH 21 MG/24 HR PATCH TRANSDERM SCH (08:44)
[2022-08-07] MEDS: TPN 24 HR with Dextrose 50% Water 500 ML, Amino Acid Infusion 10% 1,000 ML, Lipid Emuls... CENT\\PICC SCH (17:25)
[2022-08-08] MEDS: Enoxaparin 60 MG/0.6 ML SYR SUBCUT SCH ×2 (03:20→14:54)
[2022-08-08] MEDS: Nicotine PATCH 21 MG/24 HR PATCH TRANSDERM SCH (08:44)
[2022-08-08] MEDS: TPN 24 HR with Dextrose 50% Water 500 ML, Amino Acid Infusion 10% 1,000 ML, Lipid Emuls... CENT\\PICC SCH (18:05)
[2022-08-09] MEDS: Enoxaparin 60 MG/0.6 ML SYR SUBCUT SCH ×2 (02:40→14:41)
[2022-08-09 06:32] LABS: Albumin 2.7 g/dL (3.2-5.2); Albumin/Globulin Ratio 0.5 (1-3); Calcium 8.8 mg/dL (8.6-10.3); Creatinine, Serum 0.52 mg/dL (0.67-1.17); Globulin 5.3 g/dL (2-4); Magnesium 1.6 mg/dL (1.9-2.7); Potassium 4.1 mmol/L (3.5-5.0); Total Bilirubin 0.3 mg/dL (0.2-1.0); eGFR CKD-EPI 114.7 (>60)
[2022-08-09 09:08] LABS: C Reactive Protein 38.21 mg/L (<8.01)
[2022-08-09] MEDS ORDERED: Warfarin per PHARMACY **NOTE FOLLOW UP SCH (10:00)
[2022-08-09] MEDS: Nicotine PATCH 21 MG/24 HR PATCH TRANSDERM SCH (10:09)
[2022-08-09] MEDS ORDERED: Magnesium Sulf 4 GM/100 ML IV 4,000 MG/100 ML BAG IVPB ONE (11:41)
[2022-08-09] MEDS: TPN 24 HR with Dextrose 50% Water 500 ML, Amino Acid Infusion 10% 1,000 ML, Lipid Emuls... CENT\\PICC SCH (17:26)
[2022-08-10] MEDS: Enoxaparin 60 MG/0.6 ML SYR SUBCUT SCH ×2 (02:49→14:39)
[2022-08-10 06:28] LABS: Albumin 2.7 g/dL (3.2-5.2); Anion Gap 5 mmol/L (2-16); CO2 Carbon Dioxide 25 mmol/L (22-32); Calcium 8.5 mg/dL (8.6-10.3); Chloride 102 mmol/L (101-111); Magnesium 1.8 mg/dL (1.9-2.7); Potassium 4.8 mmol/L (3.5-5.0); Sodium 132 mmol/L (135-145)
[2022-08-10 06:34] LABS: ALT 11 U/L (7-52); AST 24 U/L (13-39); Albumin/Globulin Ratio 0.6 (1-3); Alkaline Phosphatase 172 U/L (35-149); Blood Urea Nitrogen 17 mg/dL (6-24); Cholesterol 115 mg/dL; Globulin 4.9 g/dL (2-4); Glucose 106 mg/dL (70-100); Total Protein 7.6 g/dL (6.4-8.9); Triglycerides 184 mg/dL
[2022-08-10] MEDS ORDERED: Magnesium Sulfate IV 3 GM in NS 0.9% 100 ml BAG 100 ML IVPB ONE (08:00)
[2022-08-10] MEDS: Nicotine PATCH 21 MG/24 HR PATCH TRANSDERM SCH (08:13)
[2022-08-10] MEDS: TPN 24 HR with Dextrose 50% Water 500 ML, Amino Acid Infusion 10% 1,000 ML, Lipid Emuls... CENT\\PICC SCH (17:36)
[2022-08-11] MEDS: Enoxaparin 60 MG/0.6 ML SYR SUBCUT SCH ×2 (03:18→14:06)
[2022-08-11] MEDS: Nicotine PATCH 21 MG/24 HR PATCH TRANSDERM SCH (08:55)
[2022-08-11] MEDS: TPN 24 HR with Dextrose 50% Water 500 ML, Amino Acid Infusion 10% 1,000 ML, Lipid Emuls... CENT\\PICC SCH (17:12)
[2022-08-12] MEDS: Enoxaparin 60 MG/0.6 ML SYR SUBCUT SCH ×2 (01:38→20:13)
[2022-08-12 06:29] LABS: Hematocrit 29.5 % (38-53); Hemoglobin 9.5 g/dL (13.2-16.3); Mean Corpuscular Hemoglobin 28.3 pg (27-33); Mean Corpuscular Hgb Conc 32.1 g/dL (31-36); Mean Platelet Volume 8.6 fL (7.5-11.2); Platelet Count 864 10^3/uL (150-450); Red Blood Count 3.36 10^6/uL (4.06-5.63); Red Cell Distribution Width 17.5 % (12-17); White Blood Count 19.3 10^3/uL (3.6-10.2)
[2022-08-12 08:00] LABS: Calcium 6.9 mg/dL (8.6-10.3); Creatinine, Serum 0.39 mg/dL (0.67-1.17); Magnesium 1.2 mg/dL (1.9-2.7); Potassium 3.6 mmol/L (3.5-5.0); eGFR CKD-EPI 125.1 (>60)
[2022-08-12] MEDS: Nicotine PATCH 21 MG/24 HR PATCH TRANSDERM SCH (08:15)
[2022-08-12 08:19] LABS: ABS Eosinophils 0.3 10^3/uL (0.0-0.5); ABS Lymphocytes 3.7 10^3/uL (1.0-4.8); ABS Monocytes 2.1 10^3/uL (0.0-1.1); ABS Neutrophils 13.3 10^3/uL (1.5-7.6); ABS Nucleated RBC 0.06 10^3/ul; Eosinophil % 1.5 %; Nucleated Red Blood Cells % 0.3 /100 WBC (0.0-0.4)
[2022-08-12 10:31] LABS: INR 1.18 (0.88-1.18)
[2022-08-12] MEDS ORDERED: Magnesium Sulf 4 GM/100 ML IV 4,000 MG/100 ML BAG IVPB ONE (10:54)
[2022-08-12] MEDS: TPN 24 HR with Dextrose 50% Water 500 ML, Amino Acid Infusion 10% 1,000 ML, Lipid Emuls... CENT\\PICC SCH (17:45)
[2022-08-13 06:11] LABS: Hematocrit 29.2 % (38-53); Hemoglobin 9.5 g/dL (13.2-16.3); Mean Corpuscular Hemoglobin 28.6 pg (27-33); Mean Corpuscular Hgb Conc 32.7 g/dL (31-36); Mean Corpuscular Volume 87.6 fL (80-97); Mean Platelet Volume 8.6 fL (7.5-11.2); Platelet Count 874 10^3/uL (150-450); Red Blood Count 3.33 10^6/uL (4.06-5.63); Red Cell Distribution Width 17.4 % (12-17); White Blood Count 23.8 10^3/uL (3.6-10.2)
[2022-08-13 06:29] LABS: Albumin 2.9 g/dL (3.2-5.2); Albumin/Globulin Ratio 0.5 (1-3); Creatinine, Serum 0.54 mg/dL (0.67-1.17); Globulin 5.5 g/dL (2-4); Magnesium 1.7 mg/dL (1.9-2.7); Potassium 4.5 mmol/L (3.5-5.0); Total Bilirubin 0.4 mg/dL (0.2-1.0); Total Protein 8.4 g/dL (6.4-8.9); eGFR CKD-EPI 113.4 (>60)
[2022-08-13 06:50] LABS: Hypochromasia 1+; Polychromasia 1+
[2022-08-13 06:51] LABS: ABS Basophils 0.1 10^3/uL (0.0-0.1); ABS Eosinophils 0.1 10^3/uL (0.0-0.5); ABS Lymphocytes 3.3 10^3/uL (1.0-4.8); ABS Monocytes 2.4 10^3/uL (0.0-1.1); ABS Neutrophils 17.9 10^3/uL (1.5-7.6); ABS Nucleated RBC 0.08 10^3/ul; Anisocytosis 2+; Eosinophil % 0.6 %; Nucleated Red Blood Cells % 0.3 /100 WBC (0.0-0.4)
[2022-08-13] MEDS: Nicotine PATCH 21 MG/24 HR PATCH TRANSDERM SCH (08:34)
[2022-08-13] MEDS: Enoxaparin 60 MG/0.6 ML SYR SUBCUT SCH ×2 (08:41→22:56)
[2022-08-13] MEDS: Ondansetron 4 mg VIAL 2 MG/ML 2 ml VIAL IV PRN (13:57)
[2022-08-13] MEDS: TPN 24 HR with Dextrose 50% Water 500 ML, Amino Acid Infusion 10% 1,000 ML, Lipid Emuls... CENT\\PICC SCH (17:30)
[2022-08-14 05:49] LABS: Hemoglobin 9.7 g/dL (13.2-16.3); Mean Corpuscular Hemoglobin 27.9 pg (27-33); Mean Corpuscular Hgb Conc 32.5 g/dL (31-36); Mean Platelet Volume 8.2 fL (7.5-11.2); Platelet Count 854 10^3/uL (150-450); Red Blood Count 3.49 10^6/uL (4.06-5.63)
[2022-08-14 06:14] LABS: Calcium 9.6 mg/dL (8.6-10.3); Creatinine, Serum 0.63 mg/dL (0.67-1.17); Magnesium 1.5 mg/dL (1.9-2.7); Potassium 4.6 mmol/L (3.5-5.0); eGFR CKD-EPI 108.2 (>60)
[2022-08-14] MEDS: Nicotine PATCH 21 MG/24 HR PATCH TRANSDERM SCH (08:31)
[2022-08-14] MEDS: Enoxaparin 60 MG/0.6 ML SYR SUBCUT SCH ×2 (08:32→21:29)
[2022-08-14 09:59] LABS: RBC Morphology Normal (Normal)
[2022-08-14] MEDS ORDERED: Iohexol 350 (CONTRAST) 500 ML MDV IV ONE (10:05)
[2022-08-14] MEDS ORDERED: Lactated Ringers 1000 ml BAG 1,000 ML IV ONE (11:13)
[2022-08-14 11:14] LABS: C Reactive Protein 148.63 mg/L (<8.01)
[2022-08-14] MEDS: Lactated Ringers 1000 ml BAG 1,000 ML IV SCH ×2 (12:34→20:16)
[2022-08-14] MEDS: Ondansetron 4 mg VIAL 2 MG/ML 2 ml VIAL IV PRN (17:29)
[2022-08-15] MEDS: Lactated Ringers 1000 ml BAG 1,000 ML IV SCH ×3 (02:15→15:56)
[2022-08-15 07:35] LABS: ABS Basophils 0.4 10^3/uL (0.0-0.1); ABS Eosinophils 0.1 10^3/uL (0.0-0.5); ABS Lymphocytes 2.9 10^3/uL (1.0-4.8); ABS Monocytes 3.3 10^3/uL (0.0-1.1); ABS Neutrophils 22.2 10^3/uL (1.5-7.6); ABS Nucleated RBC 0.05 10^3/ul; Lymphocyte % 10.2 %
[2022-08-15 07:36] LABS: Eosinophil % 0.3 %; Nucleated Red Blood Cells % 0.2 /100 WBC (0.0-0.4)
[2022-08-15 08:22] LABS: Hematocrit 26.3 % (38-53); Hemoglobin 8.5 g/dL (13.2-16.3); Mean Corpuscular Hgb Conc 32.5 g/dL (31-36); Mean Corpuscular Volume 86.2 fL (80-97); Mean Platelet Volume 8.3 fL (7.5-11.2); Platelet Count 733 10^3/uL (150-450); Red Blood Count 3.05 10^6/uL (4.06-5.63); Red Cell Distribution Width 16.9 % (12-17); White Blood Count 25.8 10^3/uL (3.6-10.2)
[2022-08-15 08:39] LABS: Albumin 2.6 g/dL (3.2-5.2); Albumin/Globulin Ratio 0.5 (1-3); C Reactive Protein 225.93 mg/L (<8.01); Calcium 8.8 mg/dL (8.6-10.3); Creatinine, Serum 0.52 mg/dL (0.67-1.17); Magnesium 1.2 mg/dL (1.9-2.7); Potassium 4.2 mmol/L (3.5-5.0); Total Bilirubin 0.4 mg/dL (0.2-1.0); Total Protein 7.6 g/dL (6.4-8.9); eGFR CKD-EPI 114.7 (>60)
[2022-08-15] MEDS ORDERED: Lidocaine PATCH 5% PATCH TRANSDERM PRN (08:40)
[2022-08-15] MEDS ORDERED: Prochlorperazine 5 mg/ml 2 ml VIAL (10 mg) IV PRN (08:40)
[2022-08-15] MEDS: Enoxaparin 60 MG/0.6 ML SYR SUBCUT SCH ×2 (08:46→21:43)
[2022-08-15] MEDS: Nicotine PATCH 21 MG/24 HR PATCH TRANSDERM SCH (08:50)
[2022-08-15] MEDS ORDERED: Zosyn per Pharmacy NOTE FOLLOW UP SCH (09:00)
[2022-08-15] MEDS ORDERED: Piperacillin/Tazobac ADVAN 3.375 GM in NS 0.9% 100 ml BAG 100 ML IV ONE (09:00)
[2022-08-15 09:10] LABS: ABS Basophils 0.2 10^3/uL (0.0-0.1); ABS Eosinophils 0.1 10^3/uL (0.0-0.5); ABS Lymphocytes 2.6 10^3/uL (1.0-4.8); ABS Nucleated RBC 0.07 10^3/ul; Eosinophil % 0.4 %; Lymphocyte % 9.9 %; Nucleated Red Blood Cells % 0.3 /100 WBC (0.0-0.4)
[2022-08-15] MEDS ORDERED: Magnesium Sulf 4 GM/100 ML IV 4,000 MG/100 ML BAG IVPB ONE (13:28)
[2022-08-15] MEDS: ZOSYN 3.375 GM Q8H per EXTENDED INFUSION IV SCH ×2 (14:44→21:37)
[2022-08-16] MEDS: Lactated Ringers 1000 ml BAG 1,000 ML IV SCH ×2 (01:37→08:53)
[2022-08-16] MEDS: ZOSYN 3.375 GM Q8H per EXTENDED INFUSION IV SCH ×3 (05:23→22:55)
[2022-08-16 05:44] LABS: Hematocrit 24.7 % (38-53); Hemoglobin 7.9 g/dL (13.2-16.3); Mean Corpuscular Hemoglobin 27.5 pg (27-33); Mean Corpuscular Hgb Conc 31.8 g/dL (31-36); Mean Corpuscular Volume 86.4 fL (80-97); Mean Platelet Volume 8.5 fL (7.5-11.2); Platelet Count 723 10^3/uL (150-450); Red Blood Count 2.85 10^6/uL (4.06-5.63); White Blood Count 20.4 10^3/uL (3.6-10.2)
[2022-08-16 05:45] LABS: ABS Basophils 0.2 10^3/uL (0.0-0.1); ABS Eosinophils 0.2 10^3/uL (0.0-0.5); ABS Lymphocytes 1.7 10^3/uL (1.0-4.8); ABS Monocytes 2.2 10^3/uL (0.0-1.1); ABS Neutrophils 16.1 10^3/uL (1.5-7.6); ABS Nucleated RBC 0.09 10^3/ul; Lymphocyte % 8.4 %; Nucleated Red Blood Cells % 0.4 /100 WBC (0.0-0.4)
[2022-08-16 06:02] LABS: Calcium 8.2 mg/dL (8.6-10.3); Creatinine, Serum 0.49 mg/dL (0.67-1.17); Magnesium 1.6 mg/dL (1.9-2.7); Potassium 3.9 mmol/L (3.5-5.0); eGFR CKD-EPI 116.8 (>60)
[2022-08-16] MEDS: Enoxaparin 60 MG/0.6 ML SYR SUBCUT SCH ×2 (08:46→21:16)
[2022-08-16] MEDS: Nicotine PATCH 21 MG/24 HR PATCH TRANSDERM SCH (08:47)
[2022-08-17] MEDS: ZOSYN 3.375 GM Q8H per EXTENDED INFUSION IV SCH ×3 (06:17→22:30)
[2022-08-17] MEDS: Nicotine PATCH 21 MG/24 HR PATCH TRANSDERM SCH (07:51)
[2022-08-17 09:14] LABS: INR 1.24 (0.88-1.18)
[2022-08-17] MEDS ORDERED: fentaNYL 100 mcg/2 ml 50 MCG/ML VIAL ONE (09:20)
[2022-08-17] MEDS: Enoxaparin 80 MG/0.8 ML SYR SUBCUT SCH (15:00)
[2022-08-18] MEDS: Enoxaparin 80 MG/0.8 ML SYR SUBCUT SCH ×2 (00:10→12:00)
[2022-08-18 05:53] LABS: Hematocrit 25.1 % (38-53); Hemoglobin 8.1 g/dL (13.2-16.3); Mean Corpuscular Hemoglobin 27.5 pg (27-33); Mean Corpuscular Hgb Conc 32.3 g/dL (31-36); Mean Corpuscular Volume 85.1 fL (80-97); Mean Platelet Volume 8.5 fL (7.5-11.2); Platelet Count 790 10^3/uL (150-450); Red Blood Count 2.95 10^6/uL (4.06-5.63); Red Cell Distribution Width 17.4 % (12-17); White Blood Count 14.7 10^3/uL (3.6-10.2)
[2022-08-18] MEDS: ZOSYN 3.375 GM Q8H per EXTENDED INFUSION IV SCH ×3 (05:53→23:38)
[2022-08-18 06:11] LABS: Calcium 8.6 mg/dL (8.6-10.3); Creatinine, Serum 0.66 mg/dL (0.67-1.17); Magnesium 1.4 mg/dL (1.9-2.7); Phosphorus 4.2 mg/dL (2.5-5.0); Potassium 4.2 mmol/L (3.5-5.0); eGFR CKD-EPI 106.7 (>60)
[2022-08-18] MEDS ORDERED: Magnesium Sulfate IV 3 GM in NS 0.9% 100 ml BAG 100 ML IVPB ONE (06:58)
[2022-08-18 07:01] LABS: ABS Basophils 0.1 10^3/uL (0.0-0.1); ABS Eosinophils 0.3 10^3/uL (0.0-0.5); ABS Lymphocytes 2.7 10^3/uL (1.0-4.8); ABS Monocytes 1.7 10^3/uL (0.0-1.1); ABS Nucleated RBC 0.03 10^3/ul; Eosinophil % 1.7 %; Lymphocyte % 18.2 %; Nucleated Red Blood Cells % 0.2 /100 WBC (0.0-0.4)
[2022-08-18] MEDS: Nicotine PATCH 21 MG/24 HR PATCH TRANSDERM SCH (09:27)
[2022-08-19] MEDS: ZOSYN 3.375 GM Q8H per EXTENDED INFUSION IV SCH (05:24)
[2022-08-19 05:28] LABS: Hematocrit 26.7 % (38-53); Hemoglobin 8.7 g/dL (13.2-16.3); Mean Corpuscular Hemoglobin 27.9 pg (27-33); Mean Corpuscular Hgb Conc 32.5 g/dL (31-36); Mean Corpuscular Volume 85.7 fL (80-97); Mean Platelet Volume 8.2 fL (7.5-11.2); Platelet Count 916 10^3/uL (150-450); Red Blood Count 3.12 10^6/uL (4.06-5.63); Red Cell Distribution Width 17.3 % (12-17); White Blood Count 14.7 10^3/uL (3.6-10.2)
[2022-08-19 05:47] LABS: Calcium 9.1 mg/dL (8.6-10.3); Creatinine, Serum 0.64 mg/dL (0.67-1.17); Magnesium 1.8 mg/dL (1.9-2.7); Potassium 4.5 mmol/L (3.5-5.0); eGFR CKD-EPI 107.7 (>60)
[2022-08-19 06:12] LABS: ABS Eosinophils 0.5 10^3/uL (0.0-0.5); ABS Lymphocytes 3.3 10^3/uL (1.0-4.8); ABS Monocytes 1.3 10^3/uL (0.0-1.1); ABS Neutrophils 9.6 10^3/uL (1.5-7.6); ABS Nucleated RBC 0.05 10^3/ul; Anisocytosis 1+; Eosinophil % 3.2 %; Lymphocyte % 22.2 %; Nucleated Red Blood Cells % 0.3 /100 WBC (0.0-0.4)
[2022-08-19] MEDS ORDERED: Magnesium Sulfate IV 1GM/100ML 1 GM/100 ML BAG IV ONE (07:03)
[2022-08-19] MEDS ORDERED: Cefepime 2 GM in Dextrose 2 GM/50 ML BAG IV SCH (08:00)
[2022-08-19] MEDS: Nicotine PATCH 21 MG/24 HR PATCH TRANSDERM SCH (08:04)
[2022-08-19] MEDS ORDERED: Glucagon 1 mg VIAL KIT ONE (09:48)
[2022-08-19] MEDS ORDERED: Midazolam 2 mg/2 ml VIAL 1 mg/ml 2 ml VIAL (2 mg) ONE (09:48)
[2022-08-19] MEDS ORDERED: fentaNYL 100 mcg/2 ml 50 MCG/ML VIAL ONE (09:48)
[2022-08-19 13:54] VITALS: BP 115/80
[2022-08-19] MEDS ORDERED: Enoxaparin 60 MG/0.6 ML SYR SUBCUT SCH (14:00)
== END 2022-08-19 16:10 | DRG 221 ==
LOC: CHOA 11:09 → SSU 11:47 → SUATTDRO 11:47 → ICU 07-16 17:32 → UNDODISIN 07-16 18:40 → SSU 07-19 17:20
PROVIDERS: ADMIT Internal Medicine Medical Oncology; ATTEND Internal Medicine

== ENCOUNTER 2022-08-19 13:28 | Inpatient (IN) ==
[2022-08-19] MEDS ORDERED: Magnesium Hydroxide LIQ 30 ML UDC PO PRN (17:10)
[2022-08-19] MEDS ORDERED: Senna TAB 8.6 mg TAB PO PRN (17:10)
[2022-08-20] MEDS: Cefepime 2 GM in Dextrose 2 GM/50 ML BAG IV SCH ×2 (00:08→12:06)
[2022-08-20] MEDS: Enoxaparin 60 MG/0.6 ML SYR SUBCUT SCH ×2 (04:18→18:18)
[2022-08-20 04:40] LABS: Hematocrit 29.7 % (38-53); Hemoglobin 9.6 g/dL (13.2-16.3); Mean Corpuscular Hemoglobin 27.3 pg (27-33); Mean Corpuscular Hgb Conc 32.3 g/dL (31-36); Mean Corpuscular Volume 84.6 fL (80-97); Mean Platelet Volume 8.1 fL (7.5-11.2); Platelet Count 999 10^3/uL (150-450); Red Blood Count 3.51 10^6/uL (4.06-5.63); Red Cell Distribution Width 17.1 % (12-17); White Blood Count 16.9 10^3/uL (3.6-10.2)
[2022-08-20 05:06] LABS: ABS Basophils 0.2 10^3/uL (0.0-0.1); ABS Eosinophils 0.5 10^3/uL (0.0-0.5); ABS Monocytes 1.6 10^3/uL (0.0-1.1); ABS Neutrophils 11.6 10^3/uL (1.5-7.6); ABS Nucleated RBC 0.05 10^3/ul; Eosinophil % 3.2 %; Lymphocyte % 17.9 %; Nucleated Red Blood Cells % 0.3 /100 WBC (0.0-0.4)
[2022-08-20 05:25] LABS: Albumin 2.9 g/dL (3.2-5.2); Albumin/Globulin Ratio 0.5 (1-3); Calcium 9.2 mg/dL (8.6-10.3); Creatinine, Serum 0.68 mg/dL (0.67-1.17); Globulin 5.4 g/dL (2-4); Potassium 5.2 mmol/L (3.5-5.0); Total Bilirubin 0.3 mg/dL (0.2-1.0); Total Protein 8.3 g/dL (6.4-8.9); eGFR CKD-EPI 105.8 (>60)
[2022-08-20] MEDS: Nicotine PATCH 14 MG/24 HR PATCH TRANSDERM SCH (07:33)
[2022-08-20 20:10] LABS: C Reactive Protein 65.14 mg/L (<8.01)
[2022-08-21] MEDS: Cefepime 2 GM in Dextrose 2 GM/50 ML BAG IV SCH ×2 (00:13→12:17)
[2022-08-21] MEDS: Enoxaparin 60 MG/0.6 ML SYR SUBCUT SCH ×2 (06:22→18:02)
[2022-08-21] MEDS: Nicotine PATCH 14 MG/24 HR PATCH TRANSDERM SCH (08:05)
[2022-08-21] MEDS: Ciprofloxacin 400mg IVPREMIX 400 MG/200 ML BAG IVPB SCH (17:53)
[2022-08-22] MEDS: Ciprofloxacin 400mg IVPREMIX 400 MG/200 ML BAG IVPB SCH ×2 (05:02→18:34)
[2022-08-22] MEDS: Enoxaparin 60 MG/0.6 ML SYR SUBCUT SCH ×2 (06:01→18:37)
[2022-08-22] MEDS: Nicotine PATCH 14 MG/24 HR PATCH TRANSDERM SCH (09:33)
[2022-08-22] MEDS: Ondansetron ODT 4 mg TAB 4 MG TAB PO PRN (19:34)
[2022-08-23] MEDS: Ciprofloxacin 400mg IVPREMIX 400 MG/200 ML BAG IVPB SCH ×2 (05:03→18:30)
[2022-08-23] MEDS: Enoxaparin 60 MG/0.6 ML SYR SUBCUT SCH ×2 (06:10→18:30)
[2022-08-23 06:39] LABS: ABS Basophils 0.2 10^3/uL (0.0-0.1); ABS Eosinophils 1.3 10^3/uL (0.0-0.5); ABS Lymphocytes 2.6 10^3/uL (1.0-4.8); ABS Monocytes 1.8 10^3/uL (0.0-1.1); ABS Neutrophils 9.4 10^3/uL (1.5-7.6); ABS Nucleated RBC 0.04 10^3/ul; Eosinophil % 8.3 %; Hematocrit 32.3 % (38-53); Hemoglobin 10.6 g/dL (13.2-16.3); Mean Corpuscular Hemoglobin 28.1 pg (27-33); Mean Corpuscular Hgb Conc 32.6 g/dL (31-36); Mean Corpuscular Volume 86.2 fL (80-97); Mean Platelet Volume 7.8 fL (7.5-11.2); Nucleated Red Blood Cells % 0.2 /100 WBC (0.0-0.4); Platelet Count 1024 10^3/uL (150-450); Red Blood Count 3.75 10^6/uL (4.06-5.63); Red Cell Distribution Width 17.5 % (12-17); White Blood Count 15.2 10^3/uL (3.6-10.2)
[2022-08-23 06:40] LABS: Anisocytosis 1+
[2022-08-23] MEDS: Ondansetron ODT 4 mg TAB 4 MG TAB PO PRN ×2 (07:40→20:28)
[2022-08-23] MEDS: Nicotine PATCH 14 MG/24 HR PATCH TRANSDERM SCH (08:19)
[2022-08-24] MEDS: Ciprofloxacin 400mg IVPREMIX 400 MG/200 ML BAG IVPB SCH ×2 (04:51→18:22)
[2022-08-24] MEDS: Enoxaparin 60 MG/0.6 ML SYR SUBCUT SCH ×2 (06:12→18:34)
[2022-08-24] MEDS: Ondansetron ODT 4 mg TAB 4 MG TAB PO PRN (08:49)
[2022-08-24] MEDS: Aspirin EC 81 mg TAB.EC (enteric coated) PO SCH (08:49)
[2022-08-24] MEDS: Nicotine PATCH 14 MG/24 HR PATCH TRANSDERM SCH (09:00)
[2022-08-24] MEDS: D5NS 0.9% 1000 ml BAG 1,000 ML IV SCH (19:43)
[2022-08-25] MEDS: D5NS 0.9% 1000 ml BAG 1,000 ML IV SCH (02:28)
[2022-08-25] MEDS: Ciprofloxacin 400mg IVPREMIX 400 MG/200 ML BAG IVPB SCH ×2 (05:08→18:13)
[2022-08-25] MEDS: Enoxaparin 60 MG/0.6 ML SYR SUBCUT SCH ×2 (05:17→18:13)
[2022-08-25] MEDS: Aspirin EC 81 mg TAB.EC (enteric coated) PO SCH (07:42)
[2022-08-25] MEDS: Nicotine PATCH 14 MG/24 HR PATCH TRANSDERM SCH (07:45)
[2022-08-26] MEDS: Ciprofloxacin 400mg IVPREMIX 400 MG/200 ML BAG IVPB SCH ×2 (05:01→18:36)
[2022-08-26] MEDS: Enoxaparin 60 MG/0.6 ML SYR SUBCUT SCH ×2 (05:57→18:41)
[2022-08-26 06:20] LABS: ABS Basophils 0.1 10^3/uL (0.0-0.1); ABS Eosinophils 0.8 10^3/uL (0.0-0.5); ABS Lymphocytes 3.7 10^3/uL (1.0-4.8); ABS Monocytes 1.1 10^3/uL (0.0-1.1); ABS Neutrophils 8.6 10^3/uL (1.5-7.6); ABS Nucleated RBC 0.01 10^3/ul; Eosinophil % 5.6 %; Hematocrit 30.7 % (38-53); Hemoglobin 10.2 g/dL (13.2-16.3); Lymphocyte % 25.8 %; Mean Corpuscular Hemoglobin 28.2 pg (27-33); Mean Corpuscular Hgb Conc 33.2 g/dL (31-36); Mean Corpuscular Volume 84.9 fL (80-97); Mean Platelet Volume 7.7 fL (7.5-11.2); Nucleated Red Blood Cells % 0.1 /100 WBC (0.0-0.4); Platelet Count 839 10^3/uL (150-450); Red Blood Count 3.62 10^6/uL (4.06-5.63); Red Cell Distribution Width 17.7 % (12-17); White Blood Count 14.2 10^3/uL (3.6-10.2)
[2022-08-26] MEDS: Aspirin EC 81 mg TAB.EC (enteric coated) PO SCH (08:22)
[2022-08-26] MEDS: Nicotine PATCH 14 MG/24 HR PATCH TRANSDERM SCH (08:29)
[2022-08-26] MEDS ORDERED: INFLIXIMAB DYYB IVPB ONE (09:00)
[2022-08-26] MEDS ORDERED: NS 0.9% IVPB ONE (09:00)
[2022-08-26] MEDS ORDERED: inFLIXimab-DYYB (Inflectra) 100 MG/10 ML VIAL IVPB ONE (09:00)
[2022-08-26] MEDS: D5NS 0.9% 1000 ml BAG 1,000 ML IV SCH (12:34)
[2022-08-26] MEDS ORDERED: Iohexol 350 (CONTRAST) 500 ML MDV IV ONE (16:17)
[2022-08-27] MEDS: Ciprofloxacin 400mg IVPREMIX 400 MG/200 ML BAG IVPB SCH ×2 (04:54→18:23)
[2022-08-27] MEDS: D5NS 0.9% 1000 ml BAG 1,000 ML IV SCH (04:55)
[2022-08-27] MEDS: Enoxaparin 60 MG/0.6 ML SYR SUBCUT SCH ×2 (05:59→18:23)
[2022-08-27 06:22] LABS: ABS Basophils 0.1 10^3/uL (0.0-0.1); ABS Eosinophils 0.6 10^3/uL (0.0-0.5); ABS Lymphocytes 3.5 10^3/uL (1.0-4.8); ABS Neutrophils 7.1 10^3/uL (1.5-7.6); ABS Nucleated RBC 0.01 10^3/ul; Eosinophil % 4.5 %; Hematocrit 29.4 % (38-53); Hemoglobin 9.6 g/dL (13.2-16.3); Lymphocyte % 28.4 %; Mean Corpuscular Hemoglobin 27.9 pg (27-33); Mean Corpuscular Hgb Conc 32.7 g/dL (31-36); Mean Corpuscular Volume 85.5 fL (80-97); Mean Platelet Volume 7.6 fL (7.5-11.2); Platelet Count 749 10^3/uL (150-450); Red Blood Count 3.44 10^6/uL (4.06-5.63); Red Cell Distribution Width 17.6 % (12-17); White Blood Count 12.2 10^3/uL (3.6-10.2)
[2022-08-27 07:12] LABS: Creatinine, Serum 0.67 mg/dL (0.67-1.17); Potassium 4.1 mmol/L (3.5-5.0)
[2022-08-27 07:13] LABS: Albumin/Globulin Ratio 0.7 (1-3); C Reactive Protein 4.93 mg/L (<8.01); Calcium 8.4 mg/dL (8.6-10.3); Globulin 4.1 g/dL (2-4); Total Bilirubin 0.2 mg/dL (0.2-1.0); Total Protein 7.1 g/dL (6.4-8.9); eGFR CKD-EPI 106.2 (>60)
[2022-08-27] MEDS: Multivitamins/Minerals TAB PO SCH (07:36)
[2022-08-27] MEDS: Aspirin EC 81 mg TAB.EC (enteric coated) PO SCH (07:36)
[2022-08-27] MEDS ORDERED: NS 0.9% 1000 ml BAG 1,000 ML IV SCH (08:15)
[2022-08-27] MEDS: Nicotine PATCH 14 MG/24 HR PATCH TRANSDERM SCH (08:21)
[2022-08-27 08:28] LABS: Magnesium 0.9 mg/dL (1.9-2.7)
[2022-08-27] MEDS ORDERED: Magnesium Sulf 4 GM/100 ML IV 4,000 MG/100 ML BAG IVPB ONE (08:49)
[2022-08-28] MEDS: Ciprofloxacin 400mg IVPREMIX 400 MG/200 ML BAG IVPB SCH ×2 (05:01→18:10)
[2022-08-28] MEDS: Enoxaparin 60 MG/0.6 ML SYR SUBCUT SCH ×2 (06:00→18:11)
[2022-08-28] MEDS: Multivitamins/Minerals TAB PO SCH (08:26)
[2022-08-28] MEDS: Aspirin EC 81 mg TAB.EC (enteric coated) PO SCH (08:26)
[2022-08-28] MEDS: Nicotine PATCH 14 MG/24 HR PATCH TRANSDERM SCH (08:28)
[2022-08-28] MEDS: Magnesium Chloride EC 64 mgTAB PO SCH ×2 (10:11→19:52)
[2022-08-29] MEDS: Ciprofloxacin 400mg IVPREMIX 400 MG/200 ML BAG IVPB SCH ×2 (05:25→18:22)
[2022-08-29] MEDS: Enoxaparin 60 MG/0.6 ML SYR SUBCUT SCH ×2 (05:41→18:31)
[2022-08-29 06:28] LABS: Calcium 9.2 mg/dL (8.6-10.3); Creatinine, Serum 0.69 mg/dL (0.67-1.17); Magnesium 1.3 mg/dL (1.9-2.7); Potassium 4.3 mmol/L (3.5-5.0); eGFR CKD-EPI 105.3 (>60)
[2022-08-29] MEDS ORDERED: Magnesium Sulfate IV 3 GM in NS 0.9% 100 ml BAG 100 ML IVPB ONE (08:43)
[2022-08-29] MEDS: Nicotine PATCH 14 MG/24 HR PATCH TRANSDERM SCH (08:53)
[2022-08-29] MEDS: Multivitamins/Minerals TAB PO SCH (09:28)
[2022-08-29] MEDS: Magnesium Chloride EC 64 mgTAB PO SCH ×2 (09:28→21:32)
[2022-08-29] MEDS: Aspirin EC 81 mg TAB.EC (enteric coated) PO SCH (09:29)
[2022-08-30] MEDS: Enoxaparin 60 MG/0.6 ML SYR SUBCUT SCH ×2 (05:10→18:06)
[2022-08-30] MEDS: Ciprofloxacin 400mg IVPREMIX 400 MG/200 ML BAG IVPB SCH ×2 (05:10→18:17)
[2022-08-30] MEDS: Aspirin EC 81 mg TAB.EC (enteric coated) PO SCH (08:43)
[2022-08-30] MEDS: Magnesium Chloride EC 64 mgTAB PO SCH ×2 (08:43→20:20)
[2022-08-30] MEDS: Multivitamins/Minerals TAB PO SCH (08:43)
[2022-08-31] MEDS: Ciprofloxacin 400mg IVPREMIX 400 MG/200 ML BAG IVPB SCH ×2 (04:57→17:38)
[2022-08-31] MEDS: Enoxaparin 60 MG/0.6 ML SYR SUBCUT SCH ×2 (06:02→17:36)
[2022-08-31 06:32] LABS: INR 1.12 (0.88-1.18)
[2022-08-31] MEDS: Magnesium Chloride EC 64 mgTAB PO SCH (08:56)
[2022-08-31] MEDS: Multivitamins/Minerals TAB PO SCH (08:56)
[2022-08-31] MEDS: Aspirin EC 81 mg TAB.EC (enteric coated) PO SCH (08:59)
[2022-08-31 15:49] LABS: Ferritin 803.4 ng/mL (24-336)
[2022-08-31] MEDS ORDERED: NS 0.9% 1000 ml BAG 1,000 ML IV SCH (16:15)
[2022-09-01] MEDS: Ciprofloxacin 400mg IVPREMIX 400 MG/200 ML BAG IVPB SCH ×2 (04:58→17:47)
[2022-09-01] MEDS: Enoxaparin 60 MG/0.6 ML SYR SUBCUT SCH ×2 (06:00→17:29)
[2022-09-01 06:52] LABS: INR 1.23 (0.88-1.18)
[2022-09-01 06:55] LABS: ABS Basophils 0.2 10^3/uL (0.0-0.1); ABS Eosinophils 0.8 10^3/uL (0.0-0.5); ABS Lymphocytes 3.4 10^3/uL (1.0-4.8); ABS Monocytes 1.2 10^3/uL (0.0-1.1); ABS Neutrophils 8.8 10^3/uL (1.5-7.6); ABS Nucleated RBC 0.01 10^3/ul; Eosinophil % 5.5 %; Hematocrit 29.1 % (38-53); Hemoglobin 9.5 g/dL (13.2-16.3); Lymphocyte % 23.6 %; Mean Corpuscular Hemoglobin 28.2 pg (27-33); Mean Corpuscular Hgb Conc 32.8 g/dL (31-36); Mean Corpuscular Volume 86.1 fL (80-97); Mean Platelet Volume 8.5 fL (7.5-11.2); Nucleated Red Blood Cells % 0.1 /100 WBC (0.0-0.4); Platelet Count 616 10^3/uL (150-450); Red Blood Count 3.38 10^6/uL (4.06-5.63); White Blood Count 14.5 10^3/uL (3.6-10.2)
[2022-09-01] MEDS: Multivitamins/Minerals TAB PO SCH (08:42)
[2022-09-01] MEDS: Aspirin EC 81 mg TAB.EC (enteric coated) PO SCH (08:42)
[2022-09-01] MEDS: Magnesium Chloride EC 64 mgTAB PO SCH (08:43)
[2022-09-01] MEDS ORDERED: Magnesium Sulfate IV 1GM/100ML 1 GM/100 ML BAG IV ONE (19:09)
[2022-09-02 05:40] VITALS: BP 105/74
[2022-09-02] MEDS: Enoxaparin 60 MG/0.6 ML SYR SUBCUT SCH (05:40)
[2022-09-02 06:15] LABS: INR 1.87 (0.88-1.18)
[2022-09-02] MEDS: Magnesium Chloride EC 64 mgTAB PO SCH (09:03)
[2022-09-02] MEDS: Multivitamins/Minerals TAB PO SCH (09:04)
== END 2022-09-02 13:50 | disposition home or self-care (01) | DRG 254 ==
LOC: PMRU 16:44
PROVIDERS: ADMIT Physical Medicine & Rehabilitation; ATTEND Physical Medicine & Rehabilitation